=== PATIENT | male | born 1935 | race Caucasian/White ===

== ENCOUNTER → 2018-01-31 10:22 | Outpatient (POV) | payer MEDICARE, OTHER, SELFPAY | PROVIDERS: Family Provider Internal Medicine Adolescent Medicine; PCP Internal Medicine Adolescent Medicine; Visit Provider Nurse Practitioner Acute Care | DX: Z00.00 Encounter for general adult medical examination without abnormal findings (principal) ==

== ENCOUNTER → 2018-05-13 10:31 | Outpatient (CLI) | payer MEDICARE, OTHER, SELFPAY ==
--- NOTE | 2018-05-13 10:38 | XR_ITS ---
XR chest 2V HISTORY: Shortness of air ITS.REASON: SOB ORDERING PHYSICIAN: Bianca Hill PATIENT AGE: 82 years COMPARISON: 10/22/2012 FINDINGS: Mild cardiomegaly without failure. There is an azygos fissure is a normal variant. Right hemidiaphragm is slightly elevated. Increased markings are present in the right perihilar region consistent with atelectatic change or vascular crowding similar to the previous exam. There is minimal atelectasis or fibrosis in the left lung base laterally. No lobar consolidation or collapse is evident. Overall no significant change compared to the previous exam. No acute bony anomalies. IMPRESSION: Cardiomegaly without failure with chronic changes in the lung bases.. No acute finding
== END ==
PROVIDERS: PCP Nurse Practitioner Family; Visit Provider Nurse Practitioner Family
DX: R06.02 Shortness of breath (principal)
CPT/HCPCS: 71046

== ENCOUNTER → 2018-07-25 08:10 | Outpatient (POV) | payer MEDICARE, OTHER, SELFPAY | PROVIDERS: Visit Provider Nurse Practitioner Acute Care | DX: Z00.00 Encounter for general adult medical examination without abnormal findings (principal) ==

== ENCOUNTER → 2018-12-02 12:10 | Outpatient (CLI) | payer MEDICARE, OTHER, SELFPAY ==
--- NOTE | 2018-12-02 12:17 | XR_ITS ---
XR knee LT 3V HISTORY: Knee pain ITS.REASON: BILAT KNEE PAIN ORDERING PHYSICIAN: Jaren Mata MD PATIENT AGE: 82 years COMPARISON: None FINDINGS: There are moderate tricompartmental osteoarthritic changes which is most severe at the medial compartment and patellofemoral joint. Osteophytes are present at the 3 compartments. No fracture or dislocation. No lytic or blastic change. Small suprapatellar effusion and generalized vascular calcification is present. 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 The osteoarthritis is worse on the left side compared to the right side.
--- NOTE | 2018-12-02 12:17 | XR_ITS ---
XR knee RT 3V HISTORY: Right knee pain ITS.REASON: BILAT KNEE PAIN ORDERING PHYSICIAN: Jaren Mata MD PATIENT AGE: 82 years COMPARISON: None FINDINGS: [id number] osteoarthritic changes are present involving all 3 compartments greater at the medial compartment. No fracture or dislocation. No lytic or blastic change. There may be a small suprapatellar effusion. There is generalized vascular calcification. IMPRESSION: [id number] osteoarthritis with possible small knee joint effusion.
== END ==
PROVIDERS: PCP Family Medicine; Visit Provider Family Medicine
DX: M25.562 Pain in left knee (principal); M25.561 Pain in right knee
CPT/HCPCS: 73562

== ENCOUNTER → 2018-12-09 11:27 | Outpatient (CLI) | payer MEDICARE, OTHER, SELFPAY ==
--- NOTE | 2018-12-09 11:38 | CT_ITS ---
CT abdomen pelvis wo con CLINICAL INDICATION: ITS.REASON: HEMATURIA ORDERING PHYSICIAN: KINGS Coy PATIENT AGE: 82 years COMPARISON: 04/25/2014 TECHNIQUE: Axial images obtained with sagittal and coronal reformats. All CT scans at the facility use one or more dose reduction, viz: automated exposure control, ma/kV adjustment per patient size (including targeted exams where dose is matched to indication, i.e. head), or iterative reconstruction technique. PROCEDURE: Oral Contrast: None IV Contrast: None . FINDINGS: There is mild left basilar atelectasis. Chronic changes are present in the lung bases with mild bronchial thickening. There are coronary artery calcifications. The liver has an unremarkable appearance. There is increased density in the gallbladder consistent with cholelithiasis. The spleen and adrenal glands are unremarkable. There is an isodensity along the anterior aspect of the body of the pancreas well-circumscribed measuring 18 x 12 mm. There are bilateral renal calculi. There is an 8 mm somewhat irregular stone in the right renal pelvis. There is minimal prominence of the right renal pelvis which had a similar appearance on the previous exam. There is a 4 mm stone in the lower pole the right kidney. There are parapelvic renal cysts on the left with a 6 mm stone in the lower pole and 4 mm stone in the lower pole anteriorly. No ureteral calculi are evident. There is a 2.5 cm cyst in the lateral aspect of the right kidney and a 2 cm cyst in the lower pole the right kidney. Unremarkable appendix. There is extensive sigmoid diverticulosis but no evidence of diverticulitis. There is a partially calcified density in the lower pelvis slightly toward the left containing fat centrally. This measures 2 cm x 1 cm and may be due to an area of fat necrosis. A fat-containing density with peripheral soft tissue density is noted adjacent to the sigmoid colon anteriorly on image #96 and may also be related to fat sclerosis or epiploic appendagitis. This has shown some increasing calcifications compared with the previous study. In the midabdomen anterolaterally an additional similar density is noted at 2 cm. A similar type of density is present in the left upper quadrant at 2.8 x 1.2 cm. A similar density is present in the mid pelvic region with coarse calcification. There are degenerative changes in the lumbar spine. IMPRESSION: 1. Bilateral nephrolithiasis. Largest stones in the right renal pelvis at 8 mm. 2. Bilateral renal cysts. 3. Multiple peritoneal fat-containing nodular opacities some of which have calcification consistent with areas of fat necrosis or possible epiploic appendagitis . 4. There is an 18 x 12 mm isodense lesion of the body of the pancreas. This is indeterminate. Further evaluation suggested with MRI without and with contrast and MRCP. The patient is not MRI compatible then CT of the pancreas with 3 phase) imaging is provided other evaluation.
== END ==
PROVIDERS: PCP Family Medicine; Visit Provider Physician Assistant
DX: R31.9 Hematuria, unspecified (principal)
CPT/HCPCS: 74176

== ENCOUNTER → 2018-12-12 11:19 | Outpatient (CLI) | payer MEDICARE, OTHER, SELFPAY ==
[2018-12-12 14:11] LABS: Blood Urea Nitrogen 9 mg/dL (7-18); Creatinine,Serum 0.93 mg/dL (0.70-1.30); Estimated Glomerular Filt Rate 78 ml/min (>60); GFR (African American) 94 ML/MIN (>60)
== END ==
PROVIDERS: PCP Physician Assistant; Visit Provider Physician Assistant
DX: K86.9 Disease of pancreas, unspecified (principal)
CPT/HCPCS: 36415; 82565; 84520

== ENCOUNTER → 2018-12-15 09:18 | Outpatient (CLI) | payer MEDICARE, OTHER, SELFPAY | PROVIDERS: PCP Family Medicine; Visit Provider Physician Assistant | DX: K86.9 Disease of pancreas, unspecified (principal) ==

== ENCOUNTER → 2018-12-19 10:18 | Outpatient (CLI) | payer MEDICARE, OTHER, SELFPAY ==
--- NOTE | 2018-12-19 10:20 | MR_ITS ---
MR abdomen wo/w con, MR 3-d myelogram/MRCP INDICATION: Follow-up pancreatic mass ITS.REASON: PANCREATIC MASS ORDERING PHYSICIAN: KINGS Coy PATIENT AGE: 83 years COMPARISON: 12/09/2018 TECHNIQUE: Multiplanar multiecho sequences are performed without and with contrast with dynamic imaging post enhanced. MRCP also performed.. FINDINGS: There is a 13 x 11 well-circumscribed lesion involving the mid aspect of the body of the pancreas anteriorly. This is hypointense on the T1-weighted images and becomes hyperintense on T2. No significant contrast enhancement. No portal or periportal adenopathy.. MRCP images suggest that this does appear to communicate with the pancreatic. MRCP shows nondilated common bile duct with a normal pancreatic duct. Cystic lesion noted in the junction of the body and tail the pancreas may communicate with the duct. There is a moderate degree of motion artifact obscuring fine detail on the MRCP. Gallstones are suspected. There are bilateral renal cysts. IMPRESSION: 1. 13 x 11 mm cystic lesion involves the junction of the body and tail the pancreas as seen on the CT scan. This may represent a side branch IPMN . Pseudocyst Would be included in the differential diagnosis. Mucinous pancreatic neoplasm felt to be less likely but not completely excluded. Suggest 6 month follow-up which can be performed with CT without and with contrast. 2. Possible cholelithiasis. 3. Bilateral renal cysts
--- NOTE | 2018-12-19 13:27 | HMH.ITSHM ---
Current Home Medications as stated by this patient Gaurav Webb or business representative. []LISINOPRIL CARVEDILOL ASPIRIN
== END ==
PROVIDERS: PCP Physician Assistant; Visit Provider Physician Assistant
DX: K86.9 Disease of pancreas, unspecified (principal)
CPT/HCPCS: 74183; 76376; A9576

== ENCOUNTER → 2019-01-16 14:01 | Outpatient (POV) | payer MEDICARE, OTHER, SELFPAY | PROVIDERS: Visit Provider Nurse Practitioner Family | DX: Z00.00 Encounter for general adult medical examination without abnormal findings (principal) ==

== ENCOUNTER → 2019-01-17 09:31 | Outpatient (CLI) | payer MEDICARE, OTHER, SELFPAY ==
[2019-01-17 15:17] LABS: Basophils % 0.2 % (0.1-2.0); Eosinophils # 0.1 K/mm3 (0.0-0.4); Eosinophils % 2.5 % (0.1-12.0); Hematocrit 38.1 % (42.0-52.0); Hemoglobin 10.9 g/dL (14.1-18.0); Lymphocytes # 0.8 K/mm3 (0.7-4.5); Lymphocytes % 20.2 % (10-50); Mean Corpuscular HGB Conc 28.6 g/dL (31.8-35.4); Mean Corpuscular Hemoglobin 24.3 pg (27.0-31.2); Mean Corpuscular Volume 85.2 fl (80-94); Mean Platelet Volume 8.8 fl (7.4-10.4); Monocytes # 0.4 K/mm3 (0.1-1.0); Neutrophils # 2.7 K/mm3 (1.8-7.8); Neutrophils % 68.1 % (37.0-80.0); Platelet Count 173 K/mm3 (142-424); Red Blood Count 4.47 M/mm3 (4.60-6.20); Red Cell Distribution Width 14.2 % (11.5-17.5)
[2019-01-17 15:56] LABS: Alanine Aminotransferase 31 U/L (12-78); Albumin Level 3.5 gm/dL (3.4-5.0); Albumin/Globulin Ratio 1.1 (1.1-1.8); Alkaline Phosphatase 71 U/L (46-116); Amylase 38 U/L (25-115); Aspartate Amino Transferase 19 U/L (15-37); Bilirubin,Total 0.6 mg/dL (0.2-1.0); Blood Urea Nitrogen 8 mg/dL (7-18); Calcium 9.1 mg/dL (8.5-10.1); Carbon Dioxide 26 mmol/L (21.0-32.0); Chloride 107 mmol/L (98-107); Creatinine,Serum 0.91 mg/dL (0.70-1.30); Estimated Glomerular Filt Rate 80 ml/min (>60); GFR (African American) 97 ML/MIN (>60); Globulin 3.1 gm/dl (1.3-3.2); Glucose 156 mg/dL (74-106); Lipase 106 u/L (73-393); Sodium 142 mmol/L (136-145); Total Protein,Serum 6.6 gm/dL (6.4-8.2)
[2019-01-20 17:48] LABS: CA 19-9 15 U/mL (0-35)
== END ==
PROVIDERS: PCP Family Medicine; Visit Provider Nurse Practitioner Family
DX: R10.10 Upper abdominal pain, unspecified (principal); R19.09 Other intra-abdominal and pelvic swelling, mass and lump; K80.20 Calculus of gallbladder without cholecystitis without obstruction
CPT/HCPCS: 36415; 80053; 82150; 83690; 85025; 86316

== ENCOUNTER → 2019-01-23 09:30 | Outpatient (CLI) | payer MEDICARE, OTHER, SELFPAY ==
--- NOTE | 2019-01-23 09:37 | US_ITS ---
US abdomen limited History: Ordering Physician:Gem Abdi APRN Patient Age: 83 years Comparison:None Findings: Pancreas:There is a cystic lesion involving the pancreatic body measuring 1.7 cm. This is poorly demonstrated due to overlying bowel gas. No obvious pancreatic ductal dilatation. Liver:Unremarkable. No obvious mass or abnormal fluid collection. No ductal dilatation Right Kidney:There is a 3 cm right renal cyst. Echogenic foci present in the gallbladder consistent with kidney stones. Gallbladder:The gallbladder is contracted. There are echogenic foci within the contracted gallbladder with some posterior acoustical shadowing consistent with gallstones. No pericholecystic fluid or biliary dilatation or gallbladder wall thickening is evident. The common bile duct measures 2 mm. Impression: 1. Contracted gallbladder with cholelithiasis. 2. 1.7 cm cystic lesion of the body of the pancreas 3. Right nephrolithiasis
--- NOTE | 2019-01-23 09:41 | NM_ITS ---
NM hepatobiliary w pharm HISTORY: Abdominal pain, cholelithiasis, contracted gallbladder noted on ultrasound ITS.REASON: ABD PAIN,BLOATING,MASS OF PANCREAS,CHOLELITHIASIS ORDERING PHYSICIAN: Gem Abdi APRN PATIENT AGE: 83 years COMPARISON: None DOSE: 8.27 MCI TC Choletec injected into LT Ant CCK was not utilized due to the presence of gallstones. The patient was given a fatty meal consisting of ensure. No pain reported with fatty meal. FINDINGS: Homogeneous activity is present within the hepatic parenchyma. Activity is present in the gallbladder by 30 minutes. Activity is present in the small bowel by 20 minutes. The gallbladder ejection fraction is calculated to be 5% which is low The patient did not report pain or other symptoms during CCK infusion. IMPRESSION: 1. No evidence of common or cystic duct obstruction. 2. Low gallbladder ejection fraction of 5%
--- NOTE | 2019-01-23 11:27 | HMH.ITSHM ---
Current Home Medications as stated by this patient Gaurav Webb or field sales representative. [] lisinopril asa carvedilol
== END ==
PROVIDERS: PCP Family Medicine; Visit Provider Nurse Practitioner Family
DX: R10.10 Upper abdominal pain, unspecified (principal); R14.0 Abdominal distension (gaseous); R19.09 Other intra-abdominal and pelvic swelling, mass and lump; K80.20 Calculus of gallbladder without cholecystitis without obstruction
CPT/HCPCS: 76705; 78227; A9537

== ENCOUNTER → 2019-02-14 09:37 | Outpatient (CLI) | payer MEDICARE, OTHER, SELFPAY ==
--- NOTE | 2019-02-14 09:43 | XR_ITS ---
XR KUB HISTORY: ITS.REASON: kidney stone ORDERING PHYSICIAN: Julio Sarkar MD PATIENT AGE: 83 years COMPARISON: None FINDINGS: Multiple bilateral renal calculi are present. A cluster stones measuring 12 mm is present in the upper pole on the left and 12 mm in the lower pole on the left. Small calculi present on the right kidney measuring 2 to 3 mm. There are multiple pelvic calcifications present which are possibly due to phleboliths IMPRESSION: Bilateral nephrolithiasis
== END ==
PROVIDERS: PCP Family Medicine; Visit Provider Urology
DX: N20.0 Calculus of kidney (principal)
CPT/HCPCS: 74018

== ENCOUNTER → 2019-05-02 10:14 | Outpatient (CLI) | payer MEDICARE, OTHER, SELFPAY ==
--- NOTE | 2019-05-02 10:36 | ECG_ITS ---
APPROVED REPORT Exam: Resting ECG HR:64 bpm ECG Measurements Heart Rate 64 AXES HI 148 P 23 QRSd 112 QRS -24 QT 386 T 92 QTc 398 <Conclusion> Normal sinus rhythm Old inf/ant changes T wave abnormality - unchanged from prior Abnormal ECG Electronically signed by : Richard Mares, 05/02/2019 11:06:26
[2019-05-02 10:41] LABS: Basophils % 0.3 % (0.1-2.0); Eosinophils # 0.1 K/mm3 (0.0-0.4); Eosinophils % 2.4 % (0.1-12.0); Hemoglobin 13.8 g/dL (14.1-18.0); Lymphocytes # 0.7 K/mm3 (0.7-4.5); Lymphocytes % 15.6 % (10-50); Mean Corpuscular HGB Conc 30.6 g/dL (31.8-35.4); Mean Corpuscular Hemoglobin 29.2 pg (27.0-31.2); Mean Corpuscular Volume 95.4 fl (80-94); Mean Platelet Volume 9.6 fl (7.4-10.4); Monocytes # 0.3 K/mm3 (0.1-1.0); Monocytes % 6.2 % (1.7-9.3); Neutrophils # 3.5 K/mm3 (1.8-7.8); Neutrophils % 75.5 % (37.0-80.0); Platelet Count 150 K/mm3 (142-424); Red Blood Count 4.72 M/mm3 (4.60-6.20); Red Cell Distribution Width 17.6 % (11.5-17.5); White Blood Count 4.7 K/mm3 (4.8-10.8)
[2019-05-02 11:46] LABS: Alanine Aminotransferase 32 U/L (12-78); Albumin Level 3.8 gm/dL (3.4-5.0); Albumin/Globulin Ratio 1.2 (1.1-1.8); Alkaline Phosphatase 72 U/L (46-116); Anion Gap 12.7 mEq/L (5-15); Aspartate Amino Transferase 20 U/L (15-37); Bilirubin,Total 0.5 mg/dL (0.2-1.0); Blood Urea Nitrogen 13 mg/dL (7-18); Calcium 9.5 mg/dL (8.5-10.1); Carbon Dioxide 28 mmol/L (21.0-32.0); Chloride 106 mmol/L (98-107); Estimated Glomerular Filt Rate 72 ml/min (>60); GFR (African American) 87 ML/MIN (>60); Globulin 3.1 gm/dl (1.3-3.2); Glucose 114 mg/dL (74-106); Potassium 4.7 mmoL/L (3.5-5.1); Sodium 142 mmol/L (136-145); Total Protein,Serum 6.9 gm/dL (6.4-8.2)
== END ==
PROVIDERS: Visit Provider Surgery
DX: K81.1 Chronic cholecystitis (principal)
CPT/HCPCS: 36415; 80053; 85025; 93005

== ENCOUNTER → 2019-09-01 12:32 | Outpatient (CLI) | payer MEDICARE, OTHER, SELFPAY ==
--- NOTE | 2019-09-01 12:37 | US_ITS ---
APPROVED REPORT Exam Type: Lower Extremity Segmental Pressures Stretching Machine Operator: MOISES SCHMID RUST Indications Claudication: Rest Pain: History of Smoking CAD Pressures/Indices Right Indices Left Indices Brachial 147.00 mmHg Brachial 156.00 mmHg Low Thigh 179.00 mmHg 1.15 Low Thigh 177.00 mmHg 1.13 Calf 160.00 mmHg 1.03 Calf 115.00 mmHg 0.74 Ankle(PT) 145.00 mmHg 0.93 Ankle(PT) 163.00 mmHg 1.04 Ankle(DP) 107.00 mmHg 0.69 Ankle(DP) 135.00 mmHg 0.87 Digit 82.00 mmHg 0.53 Digit 65.00 mmHg 0.42 Post Exercise Pressures/Indices Right Left 0.90 MURTAZA 1.00 Findings R MURTAZA .9 L MURTAZA 1.0 R TBI .5 L TBI .4 DIMINSHED PULSES NORMAL WAVEFORMS Conclusion R MURTAZA .9 L MURTAZA 1.0 R TBI .5 L TBI .4 DIMINSHED PULSES NORMAL WAVEFORMS Electronically signed by : Satnam Green, 09/01/2019 15:36:37
== END ==
PROVIDERS: PCP Family Medicine; Visit Provider Family Medicine
DX: I70.213 Atherosclerosis of native arteries of extremities with intermittent claudication, bilateral legs (principal)
CPT/HCPCS: 93923

== ENCOUNTER → 2019-09-18 09:33 | Outpatient (CLI) | payer MEDICARE, OTHER, SELFPAY ==
--- NOTE | 2019-09-18 09:37 | XR_ITS ---
PROCEDURE: XR KNEE LT 4V CLINICAL INDICATION: Left knee pain COMPARISON: No exams were available for comparison FINDINGS: No fracture or dislocation. No lytic or blastic change. There is normal mineralization. There are moderate to severe osteoarthritic changes of the medial compartment with mild to moderate osteoarthritic change of the patellofemoral joint and mild osteoarthritis of the lateral compartment. There is increased density in the suprapatellar region suggesting small effusion. Vascular calcifications are present. Other findings:None. IMPRESSION: Osteoarthritis with small knee joint effusion Dictated by: Dickson Chaney MD 09/18/2019 11:21 Electronically signed by Dickson Chaney MD in [place] 09/18/2019 11:21
== END ==
PROVIDERS: PCP Family Medicine; Visit Provider Orthopaedic Surgery
DX: M25.562 Pain in left knee (principal)
CPT/HCPCS: 73564

== ENCOUNTER → 2019-12-25 12:29 | Outpatient (CLI) | payer MEDICARE, OTHER, SELFPAY ==
--- NOTE | 2019-12-25 12:52 | CA_ITS ---
APPROVED REPORT EXAM: Comprehensive 2D, Doppler, and color-flow Echocardiogram Analysis Tester: Elizabeth Ibarra, RT(R) Ht: 5 ft 8 in Wt: 225lbs BSA: 2.15 BP: 120/84 mmHg Indications: COPD, ex smoker, HTN, SOB, elevated BNP, ARPITA, GERD, hx of throat cancer, hx TN Echo Enhancing Agent Indication: Endocardial border delineation Agent(s) / Amount(s) Used: Definity 2 cc 2D Dimensions LVOT 2.44 cm (M/F) 1.5-2.5 M-Mode Dimensions RVDd 1.67 cm (0.9-2.6) LVDd 4.52 cm (3.5-5.7) LVDs 4.22 cm (3.5-5.7) IVSd 0.84 cm (0.6-1.1) PWd 0.80 cm (0.6-1.1) EF (Teich) 14.90% FS 6.60% EDV (Teich) 93.40 mL ESV (Teich) 79.50 mL LV Diastology E/A Ratio 0.79 Mitral Valve MV A Velocity 85.00 (40-130 cm/s) Left Ventricle Left atrium is mildly enlarged, left ventricle is mildly dilated, severe reduced left ventricular systolic function, visually estimated ejection fraction approximately 20 to 25%, there is marked hypo-to akinesis involving mid to distal septum, anterior, anterior apical ,apical and inferior apical wall. There is non-mobile mural thrombus seen at the apex, delineated by Definity contrast. Diastolic parameters consistent with grade 1 diastolic dysfunction without tissue Doppler evidence of raise left atrial pressure. Right Ventricle Right atrium and right ventricular normal size and contractility. Aortic Valve Aortic valve is thickened and calcified without aortic stenosis aortic insufficiency. Mitral Valve Mitral valve leaflets are minimally thickened, there is mild mitral regurgitation. Tricuspid Valve Tricuspid valve leaflets are minimally thickened, there is mild tricuspid regurgitation. Pulmonic Valve Pulmonic valve is poorly visualized. Great Vessels Aortic root is normal size. Pericardium No significant pericardial effusion noted. Conclusion 1. Mildly enlarged left atrium, dilated left ventricle, severe reduced left ventricular systolic function, visually estimated ejection fraction 20-25% with multiple segmental wall motion abnormalities as described above, left ventricular apical mural thrombus seen as described above. Definity contrast was utilized to delineate the endocardial surfaces, grade 1 diastolic dysfunction seen without tissue Doppler evidence of raise left atrial pressure. 2. Mild mitral and tricuspid regurgitation. 3. No significant pericardial effusion noted. Electronically signed by : Tres Nuñez, 12/25/2019 21:34:21
== END ==
PROVIDERS: PCP Family Medicine; Visit Provider Family Medicine
DX: R06.02 Shortness of breath (principal); R79.89 Other specified abnormal findings of blood chemistry
CPT/HCPCS: 93306; Q9957

== ENCOUNTER 2020-03-30 06:12 | Observation (INO) | payer MEDICARE, OTHER, SELFPAY ==
[2020-03-30] VITALS (12 sets, daily range): BP systolic 137–187; BP diastolic 68–110; PULSE 75–106; RESP 16–26; TEMP 36.6–37; O2SAT 90–97; BMI 33.4; BMI 33.1
--- NOTE | 2020-03-30 06:30 | CT_ITS ---
PROCEDURE: CT ABDOMEN PELVIS W CON CLINICAL INDICATION: blood Bleeding COMPARISON: CT ABDPELW/WO CT ABD PELVIS W/WO CONTRAST from 04/25/[address] ABDOMEN PELVIS WO CON from 09/14/2019 TECHNIQUE: IV Contrast: 100ml Optiray 350 performed in conjunction with the chest CT Oral Contrast None Axial images obtained with sagittal and coronal reformats. All CT scans at the facility use one or more dose reduction, viz: automated exposure control, ma/kV adjustment per patient size (including targeted exams where dose is matched to indication, i.e. head), or iterative reconstruction technique. FINDINGS: Prior cholecystectomy with pneumobilia. Mild nonspecific thickening of the distal esophagus. 2.8 cm right renal cyst and 2.5 cm right renal cyst. 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 There is a 14 mm hypodense lesion along the anterior aspect of the body of the pancreas. An additional 5 mm hypodensity is present in the central aspect of the body of the pancreas in the region of the pancreatic duct. These findings are not significantly changed. Adrenal glands are slightly prominent but unchanged. No evidence of appendicitis. There is colonic diverticulosis. Anterior to the junction of the descending and sigmoid colon in the left lower quadrant there is an area of fat stranding not significantly changed and may represent sequela from a prior episode of epiploic appendagitis. An additional area is noted in the left lower quadrant also anterior medial to the sigmoid colon and could represent an area of prior epiploic appendagitis with circular area of stranding of the fat with some calcification. No acute bony findings. Unchanged. Prostate is enlarged at 5 cm. IMPRESSION: 1. No acute abdominal or pelvic findings. 2. There are stable hypodense pancreatic lesions which have been stable dating back to 04/25/2014 3. Colonic diverticulosis without diverticulitis with areas felt to represent sequela from epiploic appendagitis 4. Other nonacute findings as described above. Dictated by: Dickson Chaney MD 03/30/2020 10:02 Dickson Chaney MD in [place] 03/30/2020 10:02
--- NOTE | 2020-03-30 06:35 | CT_ITS ---
PROCEDURE: CT CHEST W CON CLINCAL INDICATION: coughing blood Hemoptysis, history of throat cancer COMPARISON: CT CT ABDOMEN PELVIS W CON from 03/30/2020 TECHNIQUE: IV Contrast: 75ml Optiray 350 Axial images obtained with sagittal and coronal reformats. All CT scans at the facility use one or more dose reduction, viz: automated exposure control, ma/kV adjustment per patient size (including targeted exams where dose is matched to indication, i.e. head), or iterative reconstruction technique. FINDINGS: HEART AND MEDIASTINAL STRUCTURES: There is a mildly prominent right paratracheal lymph node measuring 1.5 by 1.2 cm with other smaller mediastinal nodes apparent. Coronary artery calcifications and/or stents noted. There is mild cardiomegaly LUNGS AND PLEURAL SPACES: There is an azygos fissure is a normal variant. There is consolidation in the right upper lobe consistent with pneumonia. There are atelectatic changes in the lung bases slightly greater on the left. No central obstructing lesions are evident. No effusions. BONY STRUCTURES: No acute bony abnormalities apparent. UPPER ABDOMEN: Unremarkable. ADDITIONAL FINDINGS: No other significant abnormalities. IMPRESSION: Right upper lobe pneumonia with a mildly prominent paratracheal lymph node Dictated by: Dickson Chaney MD 03/30/2020 09:50 Dickson Chaney MD in [place] 03/30/2020 09:50
--- NOTE | 2020-03-30 06:37 | CT_ITS ---
PROCEDURE: CT SOFT TISSUE NECK W CON CLINICAL HISTORY: coughing blood History of throat cancer, coughing up blood COMPARISON: No exams were available for comparison TECHNIQUE: Oral Contrast: None IV Contrast: 100 mL Optiray 350 Axial images obtained with sagittal and coronal reformats. All CT scans at the facility use one or more dose reduction, viz: automated exposure control, ma/kV adjustment per patient size (including targeted exams where dose is matched to indication, i.e. head), or iterative reconstruction technique. FINDINGS: Lobular mucosal thickening involves the maxillary sinuses on both sides right more extensive than left consistent with retention cysts. Artifact is present from the patient's dental work. The nasopharynx, epiglottis, oropharynx hypopharynx and larynx has an unremarkable appearance. There is some asymmetry in the vocal folds left slightly more prominent than the right. Direct visualization may be of further value. No adenopathy or abnormal fluid collection is evident. There is asymmetric appearance of the thyroid gland with nonvisualization of the left lobe. Has there been prior left-sided surgery? IMPRESSION: Mild asymmetry in the vocal folds with minimal nodularity on the left. Consider direct visualization for further evaluation. Otherwise negative Dictated by: Dickson Chaney MD 03/30/2020 09:46 Dickson Chaney MD in [place] 03/30/2020 09:46
[2020-03-30 06:45] LABS: Basophils % 0.2 % (0.1-2.0); Eosinophils # 0.2 K/mm3 (0.0-0.4); Eosinophils % 1.7 % (0.1-12.0); Hematocrit 43.3 % (42.0-52.0); Hemoglobin 14.1 g/dL (14.1-18.0); Lymphocytes # 0.7 K/mm3 (0.7-4.5); Lymphocytes % 7.4 % (10-50); Mean Corpuscular HGB Conc 32.5 g/dL (31.8-35.4); Mean Corpuscular Hemoglobin 29.4 pg (27.0-31.2); Mean Corpuscular Volume 90.7 fl (80-94); Mean Platelet Volume 8.7 fl (7.4-10.4); Monocytes # 0.5 K/mm3 (0.1-1.0); Monocytes % 4.6 % (1.7-9.3); Neutrophils # 8.6 K/mm3 (1.8-7.8); Neutrophils % 86.1 % (37.0-80.0); Platelet Count 150 K/mm3 (142-424); Red Blood Count 4.77 M/mm3 (4.60-6.20); Red Cell Distribution Width 15.7 % (11.5-17.5); White Blood Count 9.9 K/mm3 (4.8-10.8)
[2020-03-30 06:47] LABS: MANUAL DIFFERENTIAL MANUAL DIFFERENTIAL (MANUAL DIFF)
[2020-03-30 06:50] LABS: Chloride 106 mmol/L (98-107); Potassium 4.2 mmoL/L (3.5-5.1); Sodium 143 mmol/L (136-145)
[2020-03-30 06:53] LABS: Alanine Aminotransferase 24 U/L (12-78); Albumin Level 4.3 g/dl (3.5-5.0); Albumin/Globulin Ratio 1.4 (1.1-1.8); Alkaline Phosphatase 75 U/L (38-126); Anion Gap 14.2 mEq/L (5-15); Aspartate Amino Transferase 28 U/L (17-59); Bilirubin,Total 0.6 mg/dl (0.2-1.3); Blood Urea Nitrogen 12 mg/dl (9-20); Carbon Dioxide 27 mmol/L (22.0-30.0); Creatinine Clearance Estimated 79 mL/min (50-200); Estimated Glomerular Filt Rate 92 ml/min (>60); GFR (African American) 112 ML/MIN (>60); Globulin 3.1 g/dL (1.3-3.2); Glucose 139 mg/dl (74-100); Total Protein,Serum 7.4 g/dl (6.3-8.2)
[2020-03-30 06:54] LABS: Calcium 9.6 mg/dl (8.4-10.2)
[2020-03-30 06:59] LABS: C-Reactive Protein 0.7 mg/L (0-4)
[2020-03-30 07:01] LABS: Eosinophils % 4 % (0-3); Lymphocytes % 10 % (10-50); Monocytes % 3 % (2-9); Neutrophils % 83 % (42-76); Platelet Estimate Normal; RBC Morphology Normal; Total Cells Counted 100
[2020-03-30 07:08] LABS: Erythrocyte Sedimentation Rate 8 mm/hr (0-20)
--- NOTE | 2020-03-30 08:10 | HMH.EDGENADL ---
ED Disposition Clinical Impression: Hemoptysis Pneumonia, aspiration Qualifiers: Aspiration pneumonia type: unspecified Laterality: right Lung location: upper lobe of lung Qualified Code(s): J69.0 - Pneumonitis due to inhalation of food and vomit Disposition: Admitted As Inpatient Condition on Discharge: Fair Instructions: DI for Gastrointestinal Bleeding, Pneumonia-Adult Referrals: Jaren Mata MD [Primary Care Provider] - Time of Disposition: 10:58 - Critical Care Critical Care Time: No Attestation: On 03/30/20, the high probability of a clinically significant, sudden or life threatening deterioration of the following system(s) required my full and direct attention, intervention and personal management. The time I documented below is in addition to time spent performing reported procedures but includes the following listed in this critical care notation. Medical Decision Making - Medical Records Medical records reviewed: Yes: I reviewed the patient's medical records. - Perfecto Inquiry Pt receiving controlled substance: No Vital Signs: 03/30/20 06:23 03/30/20 07:02 03/30/20 08:02 Temperature 98.6 F Temperature Source Oral Pulse Rate [Right] 106 H 95 H 100 H Respiratory Rate 18 16 19 Blood Pressure [Right Arm] 185/107 H 167/86 H 187/110 H Blood Pressure Mean [Right Arm] 133 113 135 Blood Pressure Source [Right Arm] Automatic Cuff Automatic Cuff Blood Pressure Position [Right Arm] Sitting Supine Supine 02 Sat by Pulse Oximetry 95 97 92 L Oxygen Delivery Method Room Air Room Air Room Air 03/30/20 08:53 03/30/20 09:48 Temperature Temperature Source Pulse Rate [Right] 91 H 94 H Respiratory Rate 25 H 18 Blood Pressure [Right Arm] 162/93 H 143/76 H Blood Pressure Mean [Right Arm] 116 98 Blood Pressure Source [Right Arm] Automatic Cuff Automatic Cuff Blood Pressure Position [Right Arm] Supine Supine 02 Sat by Pulse Oximetry 95 94 L Oxygen Delivery Method Room Air - Lab Data Lab Results 03/30/20 06:38: WBC 9.9, RBC 4.77, Hgb 14.1, Hct 43.3, MCV 90.7, MCH 29.4, MCHC 32.5, RDW 15.7, Plt Count 150, MPV 8.7, Neut % (Auto) 86.1 H, Lymph % (Auto) 7.4 L, [place] % (Auto) 4.6, Eos % (Auto) 1.7, Baso % (Auto) 0.2, Neut # (Auto) 8.6 H, Lymph # (Auto) 0.7, [place] # (Auto) 0.5, Eos # (Auto) 0.2, Baso # (Auto) 0.0, Total Counted 100, Neutrophils % (Manual) 83 H, Lymphocytes % (Manual) 10, Monocytes % (Manual) 3, Eosinophils % (Manual) 4 H, Platelet Estimate Normal, RBC Morphology Normal, ESR 8 03/30/20 06:38: Sodium 143, Potassium 4.2, Chloride 106, Carbon Dioxide 27, Anion Gap 14.2, BUN 12, Creatinine 0.80, Estimated Creat Clear 79, Estimated GFR 92, Est GFR ( Amer) 112, Glucose 139 H, Calcium 9.6, Total Bilirubin 0.6, AST 28, ALT 24, Alkaline Phosphatase 75, C-Reactive Protein 0.7, Total Protein 7.4, Albumin 4.3, Globulin 3.1, Albumin/Globulin Ratio 1.4 03/30/20 08:50: Blood Type O Positive, Antibody Screen Negative 03/30/20 08:50: SARS-CoV-2 IgG Ab (Rapid) Negative, SARS-CoV-2 IgM Ab (Rapid) Negative Result diagrams: 03/30/20 06:38 03/30/20 06:38 Orders (Tests/Meds): ED MEDICATIONS Generic Name Dose Route Start Last Admin Trade Name Freq PRN Reason Stop Dose Admin Ceftriaxone Sodium 1 gm/ 50 mls @ 100 mls/hr 03/30/20 10:15 03/30/20 10:14 Sodium Chloride IV 04/13/20 10:14 100 mls/hr Q24H VAN Administration Protocol Clindamycin Phosphate 600 mg/ 104 mls @ 100 mls/hr 03/30/20 11:00 Sodium Chloride IV 04/13/20 10:59 Q8H VAN Protocol Sodium Chloride 10 ml 03/30/20 06:41 Sodium Chloride 0.9% 10ml Vial IV 04/29/20 06:40 NEEDED PRN dilute protonix Discontinued Medications Generic Name Dose Route Start Last Admin Trade Name Freq PRN Reason Stop Dose Admin Sodium Chloride 1,000 mls @ 999 mls/hr 03/30/20 06:30 03/30/20 06:39 Sod Chlor 0.9% 1000ml Bag IV 03/30/20 07:30 999 mls/hr .Q1H1M VAN Administration Pantoprazole Sodium 80 mg
--- NOTE | 2020-03-30 09:15 | PC.NURSE ---
Called [facility] for update on CT readings stated they had not been sent out to [facility] yet because they were trying to get ahold of dr liriano, stated they would call us back with an update
--- NOTE | 2020-03-30 09:33 | PC.NURSE ---
[facility] stated they have not been able to get ahold of dr liriano and are sending it to [facility].
--- NOTE | 2020-03-30 09:35 | PC.NURSE ---
Dr Michelle updated pt and family on POC
[2020-03-30 10:02] LABS: Coronavirus 19 IgG Antibody Negative (Negative); Coronavirus 19 IgM Antibody Negative (Negative)
--- NOTE | 2020-03-30 11:19 | XR_ITS ---
PROCEDURE: XR CHEST PORTABLE CLINICAL HISTORY: pneumonia COMPARISON: CR CXR CHEST(2 VIEWS-NOT PORTABLE) from 10/22/2012 CR CXR2V XR chest 2V from 05/13/[address] CHEST W CON from 03/30/2020 FINDINGS: Borderline cardiomegaly without failure Right upper lobe pneumonia involving the anterior segment of the right upper lobe. There is an azygos fissure as a normal variant No acute bony abnormalities. IMPRESSION: Right upper lobe pneumonia Dictated by: Dickson Chaney MD 03/30/2020 13:08 Dickson Chaney MD in [place] 03/30/2020 13:08
--- NOTE | 2020-03-30 11:36 | HMH.HP ---
*Admission Date: 03/30/20 <BreeQuyen - 03/30/20 11:46> *Chief complaint: cough, hemoptysis <Quyen Giron 03/30/20 11:46> *History of present illness: Mr. Webb is an 84-year-old male presenting to the emergency department with chief complaint of coughing blood. Symptoms started yesterday evening and continued this morning. He had generalized nausea when he went to bed last night. Woke up coughing up thick mucus that was bright red and dark red in color. Was not streaks of blood, was luis enrique clot. He has a chronic cough. Coughs throughout the day and night. Nothing like this has ever happened before. 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 Takes Prilosec, aspirin and antihypertensives, no blood thinners. No vomiting. No current nausea. No recent illness, fevers, chills. No headache, vision changes, weakness. Voice is raspy, but sounds normal to his . No dark tarry stools. No history of alcohol use or varices. (the above as per the ER) The patient does have a history of peptic ulcer disease and was given protonix in the ER. He H&H was normal. He had a CT scan of the chest showing a right upper lobe infiltrate. There was some concern by the ER physician for aspiration. He was started on 1 g of IV Rocephin and 600 mg of IV clindamycin and was admitted for further evaluation and treatment. <Quyen Giron - 03/30/20 11:46> [facility] History Medical History: Reports:: Cancer (throat), Chronic Obstructive Pulmonary Disease (COPD), Coronary Artery Disease, Gastroesophageal Reflux Disease(GERD), Hypertension, Lung Disease, Kidney Stones, Myocardial Infarction, Peripheral Vascular Disease Denies:: Diabetes Mellitus Type 1, Diabetes Mellitus Type 2, Internal Pacemaker, MRSA, Seizures <Quyen Giron 03/30/20 11:46> *Have you ever received a pneumonia vaccine?: Yes <Quyen Giron 03/30/20 11:46> *Have you received a flu vaccine this season?: Yes <Quyen Giron 03/30/20 11:46> Other Medical History: Reports: Other (Diverticulosis, PVD). Denies: Blood Transfusion Reaction <Quyen Giron 03/30/20 11:46> Laterality Cases: Bilateral: Tonsillectomy <Quyen Giron 03/30/20 11:46> Other Surgeries: Yes: Cancer Surgery, Cardiac Catheterization, Cholecystectomy, Colonoscopy, Coronary Stent (1), EGD, Other. No: Pacemaker <Quyen Giron 03/30/20 11:46> Amputation: No <Quyen Giron 03/30/20 11:46> Fractures: No <Quyen Giron 03/30/20 11:46> - *Social History Smoking Status: Former smoker <Quyen Giron 03/30/20 11:46> # Packs/Day (cigarettes): 1 <Quyen Giron 03/30/20 11:46> #Yrs smoked (if former smoker): 35 <Quyen Giron 03/30/20 11:46> Alcohol Intake: never <Quyen Giron 03/30/20 11:46> Alcohol Intake Frequency:: a few times a month <Quyen Giron 03/30/20 11:46> Substance Use Type: denies use <Quyen Giron 03/30/20 11:46> *Occupational Status:: retired <Quyen Giron 03/30/20 11:46> Housing: house <Quyen Giron 03/30/20 11:46> Household Members: spouse <Quyen Giron 03/30/20 11:46> *Travel in the last 8 weeks: None <Quyen Giron 03/30/20 11:46> Family Hx:: Asthma, Cancer, Coronary Artery Disease, Diabetes, Hypertension, Stroke <Quyen Giron 03/30/20 11:46> Review of Systems - Constitutional Denies body ache(s), Denies chills <Michelle Solis - 03/30/20 14:05> - Eyes Denies change in vision <Michelle Solis - 03/30/20 14:05> - ENT Denies difficulty swallowing, Denies pain with swallowing <Michelle Solis 03/30/20 14:05> Comments: He did have some GI distress last night and brought up some food and recognizes that he possibly aspirated. <Michelle Solis - 03/30/20 14:05> - *Cardiovascular Denies chest pain <Michelle Solis - 03/30/20 14:05> - *Respiratory Reports chest congestion, Reports cough, Denies shortness of breath <Michelle Solis - 03/30/20 14:05> - *Gastrointestinal Reports heartburn, Re
--- NOTE | 2020-03-30 16:09 | PC.NURSE ---
PT AO*4 T/O SHIFT, HAS TOLERATED RA WELL WITH O2 SATS IN THE MID 90'S, PT VOICE IS VERY HOARSE AND WHEEZES CAN BE AUSCULTATED ON INSPIRATION AND EXPIRATION, #20 IN THE LAC WITH NS @100, PT NOT ON TELE, NO EDEMA NOT IN BLE, PT AMBULATES PER SELF TO RR, TOLERATING REGULAR DIET WELL. NO NEEDS AT THIS TIME, WILL CONTINUE TO MONITOR
[2020-03-31] VITALS: BP 153/81; PULSE 73; RESP 17; TEMP 36.7; O2SAT 93
[2020-03-31 03:24] VITALS: BP 136/78; PULSE 71; RESP 17; TEMP 36.6; O2SAT 94
[2020-03-31 05:03] VITALS: BMI 32.9
--- NOTE | 2020-03-31 06:21 | PC.NURSE ---
Pt slept well this shift, showered this am, and is now sitting up to chair. VSS, lung sounds clear at this time, no cough noted. Denies pain/soa.
[2020-03-31 07:29] VITALS: BP 151/100; PULSE 71; RESP 20; TEMP 36.7; O2SAT 98
[2020-03-31 08:00] VITALS: O2SAT 97
[2020-03-31 08:02] LABS: Basophils % 0.2 % (0.1-2.0); Eosinophils # 0.1 K/mm3 (0.0-0.4); Hematocrit 37.4 % (42.0-52.0); Hemoglobin 12.2 g/dL (14.1-18.0); Lymphocytes # 0.7 K/mm3 (0.7-4.5); Lymphocytes % 11.2 % (10-50); Mean Corpuscular HGB Conc 32.5 g/dL (31.8-35.4); Mean Corpuscular Hemoglobin 29.8 pg (27.0-31.2); Mean Corpuscular Volume 91.6 fl (80-94); Mean Platelet Volume 8.5 fl (7.4-10.4); Monocytes # 0.4 K/mm3 (0.1-1.0); Monocytes % 6.1 % (1.7-9.3); Neutrophils # 5.4 K/mm3 (1.8-7.8); Neutrophils % 80.6 % (37.0-80.0); Platelet Count 118 K/mm3 (142-424); Red Blood Count 4.08 M/mm3 (4.60-6.20); Red Cell Distribution Width 15.9 % (11.5-17.5); White Blood Count 6.6 K/mm3 (4.8-10.8)
[2020-03-31 08:10] LABS: Chloride 109 mmol/L (98-107); Potassium 3.9 mmoL/L (3.5-5.1); Sodium 141 mmol/L (136-145)
[2020-03-31 08:13] LABS: Anion Gap 11.9 mEq/L (5-15); Blood Urea Nitrogen 11 mg/dl (9-20); Calcium 8.8 mg/dl (8.4-10.2); Carbon Dioxide 24 mmol/L (22.0-30.0); Creatinine Clearance Estimated 78 mL/min (50-200); Estimated Glomerular Filt Rate 92 ml/min (>60); GFR (African American) 112 ML/MIN (>60); Glucose 151 mg/dl (74-100)
[2020-03-31 09:34] LABS: Hemoglobin A1C 6.7 % (4.0-6.0)
[2020-03-31 11:21] VITALS: BP 147/80; PULSE 72; RESP 20; TEMP 36.8; O2SAT 95
--- NOTE | 2020-03-31 12:44 | HMH.ACPN2 ---
Internal Medicine - PN: Subj *Date: 03/31/20 *Time: 12:44 Interval history: He slept well, he feels great, he is anxious to be discharged today. He has had very little cough and congestion. This actually makes me more concerned about the area of infiltrate in the right upper lobe. We will see how he clears as an outpatient. He will be discharged on clindamycin. Also, his sugars have run high here and an A1c reveals 6.7% glycosylated hemoglobin. He has not previously been designated as diabetic. Takes no diabetic medications. I will add metformin 500 mg a day. We discussed the possibility of increasing his Entresto dose and recognition of his elevated blood pressures. This would certainly benefit his congestive heart failure. His reports an ejection fraction of less than 35%. Follow-up will be this week with Dr. Mata. Exam Vital signs and Labs for Last 24 Hours: Temp Pulse Resp BP Pulse Ox 98.3 F 72 20 147/80 H 95 03/31/20 11:21 03/31/20 11:21 03/31/20 11:21 03/31/20 11:21 03/31/20 11:21 Laboratory Results - last 24 hr 03/31/20 07:23: WBC 6.6 D, RBC 4.08 L, Hgb 12.2 L, Hct 37.4 L, MCV 91.6, MCH 29.8, MCHC 32.5, RDW 15.9, Plt Count 118 L, MPV 8.5, Neut % (Auto) 80.6 H, Lymph % (Auto) 11.2, [place] % (Auto) 6.1, Eos % (Auto) 2.0, Baso % (Auto) 0.2, Neut # (Auto) 5.4, Lymph # (Auto) 0.7, [place] # (Auto) 0.4, Eos # (Auto) 0.1, Baso # (Auto) 0.0 03/31/20 07:23: Sodium 141, Potassium 3.9, Chloride 109 H, Carbon Dioxide 24, Anion Gap 11.9, BUN 11, Creatinine 0.80, Estimated Creat Clear 78, Estimated GFR 92, Est GFR ( Amer) 112, Glucose 151 H, Calcium 8.8 03/31/20 07:23: Hemoglobin A1c 6.7 H I & O for Last 24 hours: Intake & Output 03/29/20 03/30/20 03/31/20 04/01/20 11:59 11:59 11:59 11:59 Intake Total 1284 / 1284 Balance 1284 / 1284 Weight 218 lb 4 oz 217 lb 8 oz - Constitutional no acute distress - *Routine HEENT Exam Head: Present: normocephalic Eye: Present: PERRL ENT: Present: mucous membranes moist - *Routine Neck Exam Present: trachea midline. Absent: tenderness, swelling - Routine Chest/Breast/Axilla Exam Chest wall: Absent: tenderness - *Routine Respiratory Exam Present: CTA bilaterally (His lungs actually sound quite clear. I hear no wheezes or rales.) - *Routine Cardiovascular Exam Present: RRR - *Routine Extremities Exam Present: edema (trace) - *Routine Skin Exam Present: intact - *Routine Neurological Exam Present: alert, oriented X3. Absent: altered mental status Assessment and Plan (1) Hemoptysis Current visit: Yes Status: Acute Category: Medical Code(s): R04.2 - Hemoptysis (2) Pneumonia, aspiration Current visit: Yes Status: Acute Qualifiers: Aspiration pneumonia type: unspecified Laterality: right Lung location: upper lobe of lung Qualified Code(s): J69.0 - Pneumonitis due to inhalation of food and vomit Category: Medical Code(s): J69.0 - Pneumonitis due to inhalation of food and vomit (3) Coronary artery disease Current visit: Yes Status: Chronic Category: Medical Code(s): I25.10 - Atherosclerotic heart disease of [place] coronary artery without angina pectoris (4) History of [place] (myocardial infarction) Current visit: Yes Status: Chronic Category: Medical Code(s): I25.2 - Old myocardial infarction (5) History of laryngeal cancer Current visit: Yes Status: Chronic Category: Medical Code(s): Z85.21 - Personal history of malignant neoplasm of larynx (6) Hypertension Current visit: Yes Status: Chronic Category: Medical Code(s): I10 - Essential (primary) hypertension (7) Type 2 diabetes mellitus Current visit: Yes Status: Acute Qualifiers: Diabetes mellitus prison insulin use: without exterminator helper termite use Category: Medical Code(s): E11.9 - Type 2 diabetes mellitus without complications (8) Ischemic cardiomyopathy Current visit: Yes Status: Acute Categor
--- NOTE | 2020-03-31 14:19 | HMH.PHAVTE ---
[facility] Pharmacy VTE Monitoring - Patient Demographics Admission date: 03/31/20 Report Date: 03/31/20 Time: 14:19 Allergies/Adverse Reactions: Patient Allergies No Known Allergies Allergy (Verified 09/22/19 11:51) Height: 1.73 m Weight: 98.656 kg Patient Problems: Current Active Problems Hemoptysis (Acute) Pneumonia, aspiration (Acute) Coronary artery disease (Chronic) History of [place] (myocardial infarction) (Chronic) History of laryngeal cancer (Chronic) Hypertension (Chronic) Type 2 diabetes mellitus (Acute) Ischemic cardiomyopathy (Acute) - VTE Risk Labs: VTE Related Lab Results Hgb 12.2 g/dL (14.1-18.0) L 03/31/20 07:23 Hct 37.4 % (42.0-52.0) L 03/31/20 07:23 Plt Count 118 K/mm3 (142-424) L 03/31/20 07:23 BUN 11 mg/dl (9-20) 03/31/20 07:23 Creatinine 0.80 mg/dl (0.66-1.25) 03/31/20 07:23 Estimated Creat Clear 78 mL/min (50-200) 03/31/20 07:23 - Prophylaxis Types of VTE Prophylaxis: TEDS Knee High (WENDY HOSE ORDER PLACED)
--- NOTE | 2020-04-01 21:42 | HMH.DCSUM ---
General - General Admission date:: 03/30/20 Discharge date: 03/31/20 HPI HPI: Mr. Webb is an 84-year-old male presenting to the emergency department with chief complaint of coughing blood. Symptoms started yesterday evening and continued this morning. He had generalized nausea when he went to bed last night. Woke up coughing up thick mucus that was bright red and dark red in color. Was not streaks of blood, was luis enrique clot. He has a chronic cough. Coughs throughout the day and night. Nothing like this has ever happened before. Has a history of laryngeal cancer that was treated with excision in the s. Takes Prilosec, aspirin and antihypertensives, no blood thinners. No vomiting. No current nausea. No recent illness, fevers, chills. No headache, vision changes, weakness. Voice is raspy, but sounds normal to his . No dark tarry stools. No history of alcohol use or varices. (the above as per the ER) The patient does have a history of peptic ulcer disease and was given protonix in the ER. He H&H was normal. He had a CT scan of the chest showing a right upper lobe infiltrate. There was some concern by the ER physician for aspiration. He was started on 1 g of IV Rocephin and 600 mg of IV clindamycin and was admitted for further evaluation and treatment. Hospital Course Hospital Course: The patient had an abdominal pelvic CT showing nothing acute. His chest CT showed a right upper lobe pneumonia with a prominent paratracheal lymph node. He had a soft tissue CT of the neck showing mild asymmetry in the vocal folds with minimal nodularity on the left. He was admitted and started on Rocephin and clindamycin for possible aspiration pneumonia. He was also started on a PPI and some of his home medications. By 03/31/2020, the patient had slept well and felt great. He was anxious to be discharged home. He had very little cough and congestion. His A1c was elevated and he was started on metformin. Dr. Solis also discussed with him about possibly increasing his entresto dose as his blood pressures were elevated. He was stable to be discharged home on oral clindamycin and will follow up with Dr. Mata in the office. Objective Vital signs: Temp Pulse Resp BP Pulse Ox 98.3 F 72 20 147/80 H 95 03/31/20 11:21 03/31/20 11:21 03/31/20 11:21 03/31/20 11:21 03/31/20 11:21 Narrative: - Constitutional no acute distress (Resting comfortably in bed) - *Routine HEENT Exam Head: Present: normocephalic (Bunny complexion) Eye: Present: PERRL ENT: Present: mucous membranes moist - *Routine Neck Exam Absent: JVD, carotid bruit, lymphadenopathy, thyromegaly, tenderness, tracheal deviation - *Routine Respiratory Exam Present: decreased breath sounds, CTA bilaterally. Absent: rales, respiratory distress, wheezes - *Routine Cardiovascular Exam Present: RRR - *Routine Abdominal Exam Present: soft, obese. Absent: tenderness - *Routine Extremities Exam Absent: edema - *Routine Neurological Exam Present: alert, oriented X3, normal speech (Sounds a bit hoarse) DS: Diagnosis - Discharge Diagnosis (1) Hemoptysis Status: Acute (2) Pneumonia, aspiration Status: Acute (3) Coronary artery disease Status: Chronic (4) History of [place] (myocardial infarction) Status: Chronic (5) History of laryngeal cancer Status: Chronic (6) Hypertension Status: Chronic (7) Type 2 diabetes mellitus Status: Acute (8) Ischemic cardiomyopathy Status: Acute Discharge Plan - Patient Discharge Instructions ACTIVITY: Limited activity DIET: advance to your usual diet Patient Instructions: DI for Hemoptysis - Follow up Plan Follow up with: Jaren Mata MD [Primary Care Provider] - 04/04/20 Disposition: Home, Self-Long Term Medications: Home Medications Medication Instructions Recorded Confirmed Type Pantoprazole Sodium [Protonix 40mg 40 mg
== END 2020-03-31 15:48 | disposition home or self-care (01) ==
LOC: ER 10:58 → 2ND 14:51
PROVIDERS: Emergency Medicine; Admitting Provider Family Medicine; Emergency Provider Emergency Medicine; PCP Family Medicine; Visit Provider Family Medicine
DX: J69.0 Pneumonitis due to inhalation of food and vomit (principal); I25.10 Atherosclerotic heart disease of native coronary artery without angina pectoris; J44.9 Chronic obstructive pulmonary disease, unspecified; Z85.21 Personal history of malignant neoplasm of larynx; Z95.5 Presence of coronary angioplasty implant and graft; I25.2 Old myocardial infarction; I70.203 Unspecified atherosclerosis of native arteries of extremities, bilateral legs; Z87.891 Personal history of nicotine dependence; Z79.84 Long term (current) use of oral hypoglycemic drugs; Z79.82 Long term (current) use of aspirin; Z79.899 Other long term (current) drug therapy
CPT/HCPCS: 70491; 71045; 71260; 74177; 80048; 80053; 83036; 85007; 85025; 85651; 86140; 86328; 86850; 96365; 96367; 96375; 99285; G0378; Q9967

== ENCOUNTER → 2020-04-04 10:03 | Outpatient (CLI) | payer MEDICARE, OTHER, SELFPAY ==
--- NOTE | 2020-04-04 10:11 | XR_ITS ---
PROCEDURE: XR CHEST 2V CLINICAL HISTORY: PNEUMONIA COMPARISON: CR CXR CHEST(2 VIEWS-NOT PORTABLE) from 10/22/2012 CR CXR2V XR chest 2V from 05/13/2018 CR XR CHEST PORTABLE from 03/30/[address] CHEST W CON from 03/30/2020 FINDINGS: There is cardiomegaly without failure. Right upper lobe pneumonia has improved. There is an azygos fissure as a normal variant. No acute bony abnormalities. IMPRESSION: Cardiomegaly with improvement in right upper lobe pneumonia Dictated by: Dickson Chaney MD 04/04/2020 11:12 Dickson Chaney MD in [place] 04/04/2020 11:12
== END ==
PROVIDERS: PCP Family Medicine; Visit Provider Family Medicine
DX: J18.9 Pneumonia, unspecified organism (principal)
CPT/HCPCS: 71046

== ENCOUNTER → 2020-10-22 11:12 | Outpatient (POV) | payer MEDICARE, OTHER, SELFPAY | PROVIDERS: Visit Provider Dermatology | DX: Z00.00 Encounter for general adult medical examination without abnormal findings (principal) ==

== ENCOUNTER → 2020-11-26 11:58 | Outpatient (CLI) | payer MEDICARE, OTHER, SELFPAY ==
--- NOTE | 2020-11-26 12:04 | XR_ITS ---
PROCEDURE: XR KNEE RT 3V CLINICAL INDICATION: PAIN IN RT KNEE, ARTHRITIS OF RT KNEE COMPARISON: No exams were available for comparison FINDINGS: No fracture or dislocation. No lytic or blastic change. There is normal mineralization. There is no significant joint space narrowing. There is minimal spurring of the tibial spines. There is minimal calcification of the medial lateral meniscus. There is mild narrowing of patellofemoral space, there is no definite effusion. There is minimal calcification of popliteal artery. 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 Tyson Mcdaniel MD 11/26/2020 12:38 Dr. Tyson Mcdaniel MD in [place] 11/26/2020 12:38
== END ==
PROVIDERS: PCP Family Medicine; Visit Provider Family Medicine
DX: M25.561 Pain in right knee (principal); M17.11 Unilateral primary osteoarthritis, right knee
CPT/HCPCS: 73562

== ENCOUNTER → 2020-12-23 09:38 | Outpatient (CLI) | payer MEDICARE, OTHER, SELFPAY ==
--- NOTE | 2020-12-23 09:43 | XR_ITS ---
PROCEDURE: XR KNEE RT 4V CLINICAL INDICATION: RT knee pain COMPARISON: CR XR KNEE LT 4V from 09/18/2019 CR XR KNEE RT 3V from 11/26/2020 FINDINGS: No fracture or dislocation. No lytic or blastic change. There is normal mineralization. There are moderate osteoarthritic changes of the right knee with narrowing of the joint space and osteophyte formation. There is a small suprapatellar effusion and there is generalized vascular calcification. Other findings:None. IMPRESSION: No change moderate osteoarthritic changes with small knee joint effusion Dictated by: Dickson Chaney MD 12/23/2020 10:16 Dickson Chaney MD in [place] 12/23/2020 10:16
== END ==
PROVIDERS: PCP Family Medicine; Visit Provider Orthopaedic Surgery
DX: M17.11 Unilateral primary osteoarthritis, right knee (principal)
CPT/HCPCS: 73564

== ENCOUNTER → 2021-02-28 11:39 | Outpatient (CLI) | payer MEDICARE, OTHER, SELFPAY ==
[2021-02-28 15:02] LABS: Anion Gap 8.8 mEq/L (5-15); Blood Urea Nitrogen 17 mg/dl (9-20); Carbon Dioxide 29 mmol/L (22.0-30.0); Chloride 106 mmol/L (98-107); Potassium 4.8 mmoL/L (3.5-5.1); Sodium 139 mmol/L (136-145)
[2021-02-28 15:03] LABS: Calcium 9.2 mg/dl (8.4-10.2); Estimated Glomerular Filt Rate 80 ml/min (>60); GFR (African American) 97 ML/MIN (>60); Glucose 102 mg/dl (74-100)
[2021-02-28 15:04] LABS: 25-OH Vitamin D, Total 37.3 ng/mL (30-100)
[2021-02-28 15:18] LABS: Hemoglobin A1C 6.2 % (4.0-6.0)
== END ==
PROVIDERS: Visit Provider Family Medicine
DX: E11.9 Type 2 diabetes mellitus without complications (principal); E55.9 Vitamin D deficiency, unspecified
CPT/HCPCS: 36415; 80048; 82306; 83036

== ENCOUNTER → 2021-12-31 06:20 | Outpatient (CLI) | payer MEDICARE, OTHER, SELFPAY ==
--- NOTE | 2021-12-31 | CA_ITS ---
APPROVED REPORT EXAM: Comprehensive 2D, Doppler, and color-flow Echocardiogram Manager Mission: Debbie Zavala CRT Ht: 5 ft 8 in Wt: 270lbs BSA: 2.32 BP: 124/86 mmHg Indications: Congestive Heart Failure, COPD, Shortness of Breath, CAD, Hypertension/HDD, known EF 15-25% 12/18/19, hx throat CA, stent, ex smoker 2D Dimensions LVOT 1.90 cm (M/F) 1.5-2.5 M-Mode Dimensions RVDd 1.94 cm (0.9-2.6) LA Diam 4.52 cm (1.9-4.0) LVDd 6.35 cm (3.5-5.7) Ao Diam 3.67 cm (2.0-3.7) LVDs 5.69 cm (3.5-5.7) IVSd 1.24 cm (0.6-1.1) PWd 0.90 cm (0.6-1.1) EF (Teich) 22.20% FS 10.40% EDV (Teich) 204.80 mL TAPSE 2.02 (<1.7) ESV (Teich) 159.40 mL LV Diastology E Decel Time 163.00 (160-240 msec) E/A Ratio 1.23 MED E' 2.60 (< 7 cm/sec) MED A' 3.60 cm/s E'/MED E' Ratio 35.19 (>14) LAT E' 5.20 (<10 cm/sec) LAT A' 7.40 cm/s E/LAT E' Ratio 17.60 (>14) Aortic Valve AI PHT 350.00 ms AO Peak GR. 7.30 mmHg Mitral Valve MV E Max Silvestre. 91.00 (40-130 cm/s) MV A Velocity 74.00 (40-130 cm/s) E/A Ratio 1.23 MV Decel. Time 163.00 (160-240 ms) MV PHT 48.00 ms Pulmonary Valve PV Peak Velocity 106.00 (50-150 cm/s) Tricuspid Valve TR P. Velocity 274.00 cm/s RAP Estimate 10.00 mmHg RVSP 40.00 mmHg Left Ventricle Left atrium is moderately enlarged, left ventricle is moderately dilated, severe reduced left ventricular systolic function, estimated ejection fraction approximately 20%, there is marked hypokinesis involving mid to distal septum, anterior, apical and inferior wall. Grade 2 diastolic dysfunction seen with tissue Doppler evidence of raise left atrial pressure. Right Ventricle Right atrium and right ventricle mildly enlarged with normal contractility. Aortic Valve Aortic valve is thickened and calcified without aortic stenosis, there is mild aortic insufficiency. Mitral Valve Mitral valve leaflets are minimally thickened, there is mild mitral regurgitation. Tricuspid Valve Tricuspid valve is grossly normal, there is mild tricuspid regurgitation, tricuspid regurgitation jet velocity is inadequate for calculation of the right ventricular systolic pressure. Pulmonic Valve Pulmonic valve is poorly visualized. Great Vessels Aortic root is normal size. Inferior vena cava is poorly visualized. Pericardium No significant pericardial effusion noted. Conclusion 1. Technically difficult and poor study because of the patient factors and poor acoustic windows. 2. Dilated left atrium and left ventricle, severe reduced left ventricular systolic function, estimated ejection fraction 20% with segmental wall motion abnormality described above, grade 2 diastolic dysfunction seen with tissue Doppler evidence of left atrial pressure. 3. Mild mitral and tricuspid regurgitation. 4. No significant pericardial effusion. 5. Inferior vena cava is poorly visualized. Electronically signed by : Tres Nuñez MD 01/01/2022 06:07:29
--- NOTE | 2021-12-31 | CA_ITS ---
APPROVED REPORT Exam: Pharmacologic Technologist: Nell Bahena Ht: 5 ft 8 in Wt: 221 lbs BSA: 2.13 m2 HR: 62 bpm BP: 162/87 mmHg Rhythm: NSR, incomplete LBBB, old anteriseptal and lateral MIs, ST-T abns inferiorly, Medical History Medical History: Diabetes, HTN Medications: Aspirin,,,,, Pantoprazole,,,,, Carvedilol,,,,, Cardiac Risk Factors: HTN, Diabetes (non-insulin) Stress Test Details Test: LEXISCAN HR Resting HR: 66 bpm Max Heart Rate (APMHR): 135.851327 bpm Max HR Achieved: 80 bpm Target HR (85% APMHR): 114.982371 bpm % of APMHR: 59.26 Recovery HR: 71 bpm BP Resting BP: 162/87 mmHg Max BP: 163/90 mmHg Recovery BP: 161.0/90.0 mmHg ECG Resting ECG: NSR, incomplete LBBB, old anteroseptal and lateral MIs, ST-T abns inferiorly Clinical Exercise duration: 04:00 min Highest Stage Achieved: Exercise capacity: 1.0 METs Stress ECG Conclusion During lexiscan pt experinced no symptoms. Occasional PVC. Rare PAC noted. No significant changes. Unremarkable lexiscan stress. Myoview images reported separately. Test Summary REST . . . . . . . Sitting REST 04:28 . . 66 . 162/ 87 . . Stage 1 01:00 . . 70 . . . . Stage 2 01:00 . . 75 . 151/ 81 . . Stage 3 01:00 . . 65 . . . . Stage 4 01:00 . . 72 . 163/ 90 . Stop exercise at 04:00 RECOVERY 01:00 . . 74 . . . . RECOVERY 02:00 . . 69 . 161/ 90 . . RECOVERY 03:00 . . 67 . 161/ 90 . . RECOVERY 04:00 . . 67 . 163/ 82 . . RECOVERY 04:13 . . 69 . 163/ 82 . . Electronically signed by : Tres Nuñez MD 01/01/2022 06:23:56
--- NOTE | 2021-12-31 06:30 | NM_ITS ---
APPROVED REPORT Exam: Nuclear Stress Test Indication: SOB, HTN, DM, CAD, Hx of NM Patient Location: Outpatient Stress Tech: Nell Bahena [place] Tech:Helen Villagomez, ARRT, RT (R)(N) Ht: 5 ft 8 in Wt: 217 lbs HR: 66 bpm BP: 162/87 mmHg BSA: 2.12 m2 TID: 1.11 BMI: 32.9 History: SOB, HTN, DM, CAD, Hx of NM Procedure: Patient received a 0.4 mg of intravenous Lexiscan, resting heart rate 66 bpm, resting blood pressure 162/87 mmHg, with Lexiscan maximum heart rate achived was 80 bpm which is Less than 85 % of the maximum predicted heart rate and blood pressure was 163/90 mmHg. With Lexiscan, patient denied any complaint of chest pain. Electrocardiogram Resting electrocardiogram shows sinus rhythm with intraventricular conduction delay nonspecific ST-T changes, with Lexiscan there is less than 1.[address] segment depression noted from the baseline EKG. The EKG portion of the Lexiscan is nondiagnostic. Cardiac Stress and Resting SPECT Images: Cardiac Stress and Resting SPECT images were obtained using technetium 99m Myoview 32.5 mCi stress and 10.09 mCi at rest. Gated SPECT for analysis of segmental wall motion and calculation of the ejection fraction also done. Prone images were also obtained. Cardiac stress and rest SPECT images show a large area of myocardial scarring involving the anterior, anterior apical, anteroseptal and inferolateral wall without significant ori-infarct ischemia. Left ventricle is dilated, computer derived ejection fraction is 18% with marked hypokinesis involving the anterior, apex, anteroseptal and inferolateral wall. Right ventricle is mildly enlarged with normal contractility. Conclusion: 1. The EKG portion of the Lexiscan is nondiagnostic. 2. Scintigraphic evidence of extensive myocardial scarring involving the anterior, anterior apical, apex, anteroseptal and inferolateral wall without significant ori-infarct ischemia. Left ventricle is dilated with stress and rest. Computer derived ejection fraction is 18% with multiple segmental wall motion abnormalities as described above. Right ventricle is mildly enlarged with normal contractility. 3. Abnormal Lexiscan Myoview study. Electronically signed by : Tres Nuñez MD 01/01/2022 06:27:47
--- NOTE | 2021-12-31 08:24 | HMH.ITSHM ---
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 []CARVEDILOL PANTOPRAZOLE ASA
== END ==
PROVIDERS: PCP Family Medicine; Visit Provider Internal Medicine Cardiovascular Disease
DX: R06.02 Shortness of breath (principal)
CPT/HCPCS: 78452; 93017; 93306; A9502; J2785

== ENCOUNTER → 2022-01-16 09:47 | Outpatient (CLI) | payer MEDICARE, OTHER, SELFPAY ==
--- NOTE | 2022-01-16 09:50 | XR_ITS ---
FINAL REPORT CLINICAL HISTORY: Lt knee pain @ popliteal surface x 1 yr, worsened x recent mos. NKT COMPARISON: September 18, 2019 FINDINGS: LEFT KNEE: Three views of the left knee were obtained. There is no acute fracture or dislocation. There are moderate and severe degenerative changes, worst involving the medial compartment. There is no joint effusion. There are mild vascular calcifications. IMPRESSION: Stable degenerative changes with no acute bony abnormality. Reviewed, Interpreted and Dictated by Moises Meneses III, MD Transcribed by Fifi Reyes Authenticated and [facility]
== END ==
PROVIDERS: PCP Family Medicine; Visit Provider Orthopaedic Surgery
DX: M25.562 Pain in left knee (principal)
CPT/HCPCS: 73564

== ENCOUNTER → 2023-03-08 10:53 | Outpatient (CLI) | payer MEDICARE, OTHER, SELFPAY ==
[2023-03-08 11:28] LABS: Basophils % 0.4 % (0.1-2.0); Eosinophils # 0.2 K/mm3 (0.0-0.4); Eosinophils % 4.5 % (0.1-12.0); Hematocrit 43.5 % (42.0-52.0); Hemoglobin 13.8 g/dL (14.1-18.0); Lymphocytes # 0.9 K/mm3 (0.7-4.5); Lymphocytes % 18.4 % (10-50); Mean Corpuscular HGB Conc 31.8 g/dL (31.8-35.4); Mean Corpuscular Hemoglobin 30.9 pg (27.0-31.2); Mean Corpuscular Volume 97.2 fl (80-94); Mean Platelet Volume 8.1 fl (7.4-10.4); Monocytes # 0.4 K/mm3 (0.1-1.0); Neutrophils # 3.1 K/mm3 (1.8-7.8); Neutrophils % 67.7 % (37.0-80.0); Platelet Count 139 K/mm3 (142-424); Red Blood Count 4.48 M/mm3 (4.60-6.20); Red Cell Distribution Width 14.5 % (11.5-17.5); White Blood Count 4.7 K/mm3 (4.8-10.8)
[2023-03-08 12:22] LABS: Chloride 108 mmol/L (98-107); Potassium 4.4 mmoL/L (3.5-5.1); Sodium 145 mmol/L (136-145)
[2023-03-08 12:24] LABS: Bilirubin,Unconjugated 0.2 mg/dL (0.0-1.1); Blood Urea Nitrogen 15 mg/dl (9-20); Estimated Glomerular Filt Rate 92 ml/min (>60); GFR (African American) 111 ML/MIN (>60)
[2023-03-08 12:25] LABS: Alanine Aminotransferase 26 U/L (12-78); Albumin Level 3.8 g/dl (3.5-5.0); Alkaline Phosphatase 92 U/L (38-126); Anion Gap 11.4 mEq/L (5-15); Aspartate Amino Transferase 27 U/L (17-59); Bilirubin,Direct 0.3 mg/dl (0.0-0.4); Bilirubin,Indirect 0.1 mg/dL (0.0-0.9); Bilirubin,Total 0.4 mg/dl (0.2-1.3); Calcium 10.3 mg/dl (8.4-10.2); Carbon Dioxide 30 mmol/L (22.0-30.0); Chol/HDL Ratio 6.6 (1-3.5); Cholesterol 184 mg/dl (140-200); Glucose 132 mg/dl (74-100); HDL Cholesterol 28 mg/dl (40-60); Total Protein,Serum 6.6 g/dl (6.3-8.2); Triglycerides 144 mg/dl (30-150); VLDL Cholesterol 29 mg/dL (0-40)
[2023-03-08 12:36] LABS: Direct LDL Cholesterol 121.34 mg/dL (100-129)
[2023-03-08 12:42] LABS: Free T4 (Free Thyroxine) 0.81 ng/dl (0.78-2.19)
[2023-03-08 12:55] LABS: Thyroid Stimulating Hormone 2.56 uIU/mL (0.465-4.68)
== END ==
PROVIDERS: PCP Family Medicine; Visit Provider Internal Medicine
DX: E11.9 Type 2 diabetes mellitus without complications (principal); I25.10 Atherosclerotic heart disease of native coronary artery without angina pectoris; I25.2 Old myocardial infarction; I25.5 Ischemic cardiomyopathy; R06.00 Dyspnea, unspecified; R42 Dizziness and giddiness; I11.9 Hypertensive heart disease without heart failure; I63.9 Cerebral infarction, unspecified
CPT/HCPCS: 36415; 80048; 80061; 80076; 84439; 84443; 85025

== ENCOUNTER → 2023-03-23 07:21 | Outpatient (CLI) | payer MEDICARE, OTHER, SELFPAY ==
--- NOTE | 2023-03-23 07:28 | CA_ITS ---
APPROVED REPORT EXAM: Comprehensive 2D, Doppler, and color-flow Echocardiogram Methodologist: Elizabeth Ibarra RT(R) Ht: 5 ft 8 in Wt: 217lbs BSA: 2.12 BP: 158/72 mmHg Indications: CP, SOB, COPD, HTN, edema, fatigue, hx of throat cancer, CHF, cardiac stent, CM, EF 20% on echo (12/31/21). Echo Enhancing Agent Indication: Endocardial border delineation Agent(s) / Amount(s) Used: Definity 2 cc 2D Dimensions LVOT 2.03 cm (M/F) 1.5-2.5 LA Volume 93.00 mL LA Volume Index 43.87 mL/m2 (M/F) 16-34 M-Mode Dimensions RVDd 1.48 cm (0.9-2.6) LA Diam 4.88 cm (1.9-4.0) LVDd 6.63 cm (3.5-5.7) Ao Diam 2.90 cm (2.0-3.7) LVDs 5.91 cm (3.5-5.7) IVSd 0.83 cm (0.6-1.1) PWd 0.57 cm (0.6-1.1) EF (Teich) 23.00% FS 10.90% EDV (Teich) 225.90 mL ESV (Teich) 173.90 mL LV Diastology E Decel Time 173.00 (160-240 msec) E/A Ratio 1.2 MED E' 5.00 (< 7 cm/sec) E'/MED E' Ratio 20.36 (>14) LAT E' 7.60 (<10 cm/sec) E/LAT E' Ratio 13.39 (>14) Mitral Valve MV E Max Silvestre. 102.00 (40-130 cm/s) MV A Velocity 82.00 (40-130 cm/s) E/A Ratio 1.25 MV Decel. Time 173.00 (160-240 ms) MV PHT 51.00 ms Left Ventricle Left ventricle is severely dilated. Left ventricular systolic function is severely decreased. There is normal left ventricular wall thickness. There is akinesis of the mid to distal inferior and inferoseptal LV avina, as well as the LV apical region. There is grade II diastolic dysfunction. No left ventricle thrombus noted on this study. LVEF is 20%. Right Ventricle Right ventricle is mildly dilated. The right ventricular systolic function is normal. Atria Left atrium is moderately dilated. The right atrium size is normal. Aortic Valve The aortic valve is moderately thickened. There is no aortic valvular stenosis. Trace aortic regurgitation. Mitral Valve The mitral valve is mildly thickened. No evidence of mitral valve stenosis. Mild mitral regurgitation. Tricuspid Valve The tricuspid valve leaflets are thin and pliable. Trace tricuspid regurgitation. There is insufficient TR jet to estimate RVSP. Pulmonic Valve The pulmonary valve is normal in structure. Trace pulmonic regurgitation. Great Vessels The aortic root is normal in size. The ascending aorta is not well visualized. The IVC is not well visualized. Pericardium There is no pericardial effusion. Other Information Study Quality: Fair Conclusion Severe LV dilation with severe reduction in LVEF. Wall motion abnormalities are present. No evidence of LV thrombus with administration of ultrasound enhancing agent (UEA) Dilated RV with normal RV function. No significant valvular stenosis or regurgitation. Electronically signed by : Niurka Pitts, 03/23/2023 15:34:26
== END ==
PROVIDERS: PCP Family Medicine; Visit Provider Internal Medicine
DX: E11.9 Type 2 diabetes mellitus without complications (principal); I10 Essential (primary) hypertension; I25.10 Atherosclerotic heart disease of native coronary artery without angina pectoris; I25.2 Old myocardial infarction; I25.5 Ischemic cardiomyopathy; R06.09 Other forms of dyspnea; R42 Dizziness and giddiness
CPT/HCPCS: 93306; Q9957

== ENCOUNTER → 2023-08-04 10:43 | Outpatient (CLI) | payer MEDICARE, OTHER, SELFPAY ==
[2023-08-04 11:03] LABS: Basophils % 0.3 % (0.1-2.0); Eosinophils # 0.2 K/mm3 (0.0-0.4); Eosinophils % 3.2 % (0.1-12.0); Hematocrit 43.7 % (42.0-52.0); Lymphocytes % 16.6 % (10-50); Mean Corpuscular HGB Conc 34.5 g/dL (31.8-35.4); Mean Corpuscular Hemoglobin 32.3 pg (27.0-31.2); Mean Corpuscular Volume 93.7 fl (80-94); Monocytes # 0.5 K/mm3 (0.1-1.0); Monocytes % 7.8 % (1.7-9.3); Neutrophils # 4.5 K/mm3 (1.8-7.8); Neutrophils % 72.2 % (37.0-80.0); Platelet Count 148 K/mm3 (142-424); Red Blood Count 4.66 M/mm3 (4.60-6.20); Red Cell Distribution Width 14.3 % (11.5-17.5); White Blood Count 6.2 K/mm3 (4.8-10.8)
[2023-08-04 11:57] LABS: Alanine Aminotransferase 29 U/L (12-78); Albumin Level 4.3 g/dl (3.5-5.0); Alkaline Phosphatase 58 U/L (38-126); Anion Gap 10.3 mEq/L (5-15); Aspartate Amino Transferase 31 U/L (17-59); Bilirubin,Direct 0.1 mg/dl (0.0-0.4); Bilirubin,Indirect 0.6 mg/dL (0.0-0.9); Bilirubin,Total 0.7 mg/dl (0.2-1.3); Bilirubin,Unconjugated 0.6 mg/dL (0.0-1.1); Blood Urea Nitrogen 16 mg/dl (9-20); Calcium 9.5 mg/dl (8.4-10.2); Carbon Dioxide 29 mmol/L (22.0-30.0); Chloride 103 mmol/L (98-107); Chol/HDL Ratio 8.3 (1-3.5); Cholesterol 198 mg/dl (140-200); Estimated Glomerular Filt Rate 63 ml/min (>60); GFR (African American) 77 ML/MIN (>60); Glucose 110 mg/dl (74-100); HDL Cholesterol 24 mg/dl (40-60); Magnesium 1.7 mg/dl (1.6-2.3); Potassium 4.3 mmoL/L (3.5-5.1); Sodium 138 mmol/L (136-145); Total Protein,Serum 7.1 g/dl (6.3-8.2); Triglycerides 213 mg/dl (30-150); VLDL Cholesterol 43 mg/dL (0-40)
[2023-08-04 12:08] LABS: Direct LDL Cholesterol 120.93 mg/dL (100-129)
[2023-08-04 12:14] LABS: Free Thyroxine Index 2.3 ug/dL (5.93-13.13); T4 (Thyroxine) 6.5 ug/dl (5.53-11.0); Triiodothryronine (T3) Uptake 36 % (23.5-40.5)
[2023-08-04 12:28] LABS: Thyroid Stimulating Hormone 3.01 uIU/mL (0.465-4.68)
== END ==
LOC: LAB 10:45
PROVIDERS: PCP Family Medicine; Visit Provider Internal Medicine
DX: I25.5 Ischemic cardiomyopathy (principal); I25.2 Old myocardial infarction; I10 Essential (primary) hypertension; Z85.21 Personal history of malignant neoplasm of larynx; Z87.891 Personal history of nicotine dependence
CPT/HCPCS: 36415; 80048; 80061; 80076; 83735; 84436; 84443; 84479; 85025

== ENCOUNTER 2023-08-10 11:31 | Observation (INO) | payer MEDICARE, OTHER, SELFPAY ==
[2023-08-10] VITALS (15 sets, daily range): BP systolic 111–166; BP diastolic 54–108; PULSE 56–75; RESP 17–19; TEMP 36.9; O2SAT 90–99; BMI 31.7; BMI 32.5
--- NOTE | 2023-08-10 07:00 | CA_ITS ---
APPROVED REPORT EXAM: Comprehensive 2D, Doppler, and color-flow Echocardiogram [employer]: Elizabeth Ibarra RT(R) Ht: 5 ft 8 in Wt: 204lbs BSA: 2.06 BP: 124/73 mmHg Indications: SOA, HTN, DM, abn GXT, CM, CAD, ex smoker, EF 20% 03/23/23. 2D Dimensions LA Volume 63.90 mL LA Volume Index 31.02 mL/m2 (M/F) 16-34 M-Mode Dimensions RVDd 2.05 cm (0.9-2.6) LA Diam 4.48 cm (1.9-4.0) LVDd 6.16 cm (3.5-5.7) LVDs 5.35 cm (3.5-5.7) IVSd 0.93 cm (0.6-1.1) PWd 0.76 cm (0.6-1.1) EF (Teich) 27.60% FS 13.10% EDV (Teich) 191.10 mL ESV (Teich) 138.30 mL LV Diastology E Decel Time 150 (160-240 msec) E/A Ratio 1.3 Mitral Valve MV E Max Silvestre. 110.0 (40-130 cm/s) MV A Velocity 84.0 (40-130 cm/s) E/A Ratio 1.31 MV PHT 44.0 ms Left Ventricle Left ventricle is severely dilated. The left ventricular systolic function is severely reduced. There is normal left ventricular wall thickness. There is severe global hypokinesis present. There is akinesis of the distal inferior and inferoseptal LV avina. Grade 2 diastolic dysfunction is present. LVEF is 20%. Right Ventricle The right ventricle is normal size. The right ventricular systolic function is normal. Atria Left atrium is mildly dilated. The right atrium size is normal. The interatrial septum is not well visualized. Aortic Valve The aortic valve is mildly thickened. There is no aortic valvular stenosis. Trace aortic regurgitation. Mitral Valve The mitral valve leaflets are mildly thickened. No evidence of mitral valve stenosis. Mild mitral regurgitation. Tricuspid Valve The tricuspid valve leaflets are thin and pliable. Trace tricuspid regurgitation. There is insufficient TR jet to estimate RVSP. Pulmonic Valve The pulmonary valve is normal in structure. Trace pulmonic regurgitation. Great Vessels The aortic root is normal in size. The ascending aorta is not well visualized. The IVC is not well visualized. Pericardium There is no pericardial effusion. Other Information Study Quality: Technically Difficult Conclusion Technically difficult study due to poor accoustic windows. Severely dilated LV with severe reduction in LV systolic function (LVEF 20%). Akinesis of the distal inferior and inferoseptal LV avina. Mild MR. Electronically signed by : Niurka Pitts MD 08/10/2023 17:37:21
--- NOTE | 2023-08-10 07:19 | IR_ITS ---
APPROVED REPORT Patient Location: Outpatient Human Resources Benefits Administrator: CAROL Vincent RT (R) PROCEDURES Selective coronary angiogram Drug-eluting stent deployment to the ostial proximal left main artery Drug-eluting stent deployment to the ostial proximal mid and distal LAD in a contiguous manner Drug-eluting stent deployment to the ostial proximal circumflex artery Drug-eluting stent deployment to the proximal and mid first obtuse marginal artery INDICATION Coronary artery disease, Angina pectoris, Ischemic cardiomyopathy, High risk abnormal Myoview, Ejection fraction 20%, Informed consent was obtained prior to the procedure. COMPLICATIONS NONE Estimated Blood Loss: LESS THAN 10 ML TECHNIQUE One percent lidocaine used to anesthetize the right anterior aspect of the wrist. The right radial artery was accessed via the Seldinger technique. A 6 Italian sheath was placed in the right radial artery. 2.5 mg of Verapamil, 800 mcg of nitroglycerin, 1mg Lidocaine and 5000 U Heparin were given through the arterial sheath. The papa catheter waselective coronary angiogram. At the end the diagnostic angiogram therapeutic heparin was administered giving a therapeutic ACT and the guide catheter was placed in left main artery followed by Choice PT extra-support wire down the LAD. A 4 mm x 8 mm Coleman frontier stent was placed in the ostial LAD at 22 cristina reducing the stenosis. This reduced dampening and allowed for deeper insertion of the guide catheter. A guide liner was advanced into the LAD and a 2.5 mm x 20 mm noncompliant balloon was deployed at 20 cristina up and down the mid and proximal LAD. This allowed advancement of the guide liner into the LAD and a 2.75 x 38 mm Coleman frontier stent was deployed at 20 cristina reducing the stenosis. An additional 2.5 x 12 mm Coleman frontier stent was placed distal to the for stent yet still overlapping and deployed at 16 cristina. The balloon was brought back and deployed at 24 cristina to mesh the stents. An additional 2.75 x 38 mm Coleman frontier stent was placed in the ostial LAD extending into the previous 2.75 mm stent and deployed at 22 cristina. ARAMIS-3 flow was present before and after the procedure. After achieving excellent angiographic results the guide liner was pulled back to the left main artery and a Choice PT extra-support wire was placed into the circumflex artery. A 2 mm balloon was used to predilate the critical stenosis. Following this the guide liner was advanced and a 2.75 x 26 mm [place] frontier stent was deployed at 20 cristina in the ostial proximal circumflex artery reducing the critical stenosis. An additional 2.5 x 38 mm Coleman frontier stent was placed into the first obtuse marginal artery overlapping the for stent and deployed at 16 cristina. The balloon was brought back and deployed at 22 cristina to mesh the 2 stents. Excellent graft results were obtained. ARAMIS-3 flow was present before and after the procedure. At the end the procedure the apparatus was removed the sheath was removed and hemostasis was achieved using TR banding patient was transferred to the postoperative in stable addition ANGIOGRAPHIC RESULTS The left main artery Has an ostial 50% stenosis with significant dampening upon catheter insertion The left anterior descending artery Is diffusely calcified throughout and has proximal 50% stenosis with mid vessel diffuse 70% calcified stenoses. The first and second diagonal arteries are large branches with the first diagonal artery having a proximal 50% stenosis. A large bifurcating second diagonal artery has 60% calcified stenoses. The circumflex artery Is a dominant vessel and has a proximal calcified concentric 90% stenosis. The first obtuse marginal artery has 70 and 80% proximal stenosis while the second obtuse marginal artery has an ostial 90% stenosis followed by an additional 60 to 70% stenosis The right coronary artery Is nondominant yet still large and is proximally normal with mid vessel 40% concentric stenoses and distal 30 to 40% stenoses The YAÑEZ ventriculogram reveals Not performed The left ventricular end-diastolic pressure Not measured IMPRESSION Severe disease in the left main artery large LAD system as described above as well as dominant circumflex artery. Successful stenting of the ostial left main artery severe disease reduced to 0% with 1 drug-eluting stent Successful reconstruction of the ostial proximal mid and distal LAD severe calcific disease reduced to 0% with 3 contiguous drug-eluting stents Successful stenting of the ostial proximal mid circumflex artery critical disease reduced to 0% with 1 drug-eluting stent with additional stenting extending into a critically diseased large first obtuse marginal artery Persistent mild to moderate nonflow limiting disease in a nondominant yet still large right coronary PLAN 1. Patient requires admission due to the complexity of the procedure and copious contrast. 2. Gentle IV fluids while making sure patient does not go into heart failure or pulmonary edema 3. Chemistry panel in the morning 4. Dual antiplatelet therapy 5. Cardiac rehabilitation 6. LDL less than 55 to be achieved with high intensity statin 7. If patient is a candidate for LifeVest that should be offered 8. Reevaluate ejection fraction in 90 days to determine if patient is a candidate for AICD placement 9. Standard therapy for systolic heart failure and ischemic cardiomyopathy Electronically signed by : Devin Beth MD 08/10/2023 11:46:36
[2023-08-10] MEDS: NITROGLYCERIN 800MCG/8ML SYR (CATH LAB) 800 MCG IA (10:37)
[2023-08-10] MEDS: LIDOCAINE 1% 10ML MDV 20 ML IJ (10:37)
[2023-08-10] MEDS: VERAPAMIL 2.5MG/ML 2ML VIAL 2.5 MG IV (10:37)
[2023-08-10] MEDS: HEPARIN 1,000 UNITS/ML 10ML VIAL (CATH LAB) 10000 UNIT IV ×2 (10:37→10:58)
[2023-08-10] MEDS: diphenhydrAMINE 50MG/ML VIAL 50 MG IV (10:38)
[2023-08-10] MEDS: 0.9 % SODIUM CHLORIDE 500 ML 25 ML IV (10:38)
[2023-08-10] MEDS: HEPARIN 1,000 UNITS/500ML NS (CATH LAB) 3000 UNIT IV (10:38)
[2023-08-10] MEDS: MIDAZOLAM HCL 1MG/1ML 5ML VIAL 1 MG IV (10:58)
[2023-08-10] MEDS: FENTANYL 100MCG/2ML VIAL 50 MCG IV (10:58)
[2023-08-10] MEDS: CLOPIDOGREL 300MG TABLET 600 MG PO (11:35)
[2023-08-10] MEDS: IOPAMIDOL-370 (76%);100ML BOTTLE 220 ML IV (12:19)
[2023-08-10 12:21] LABS: CATHL Activated Clotting Time 308 SEC (74-125)
[2023-08-10 12:22] LABS: CATHL Activated Clotting Time > 400 SEC (74-125)
[2023-08-10 13:40] LABS: Blood Urea Nitrogen 11 mg/dl (9-20); Carbon Dioxide 30 mmol/L (22.0-30.0); Creatinine Clearance Estimated 73 mL/min (50-200); Estimated Glomerular Filt Rate 107 ml/min (>60); GFR (African American) 129 ML/MIN (>60); Glucose 105 mg/dl (74-100)
[2023-08-10 13:43] LABS: Basophils % 0.5 % (0.1-2.0); Eosinophils # 0.2 K/mm3 (0.0-0.4); Eosinophils % 3.7 % (0.1-12.0); Hematocrit 45.2 % (42.0-52.0); Hemoglobin 14.3 g/dL (14.1-18.0); Lymphocytes % 19.9 % (10-50); Mean Corpuscular HGB Conc 31.8 g/dL (31.8-35.4); Mean Corpuscular Hemoglobin 31.3 pg (27.0-31.2); Mean Corpuscular Volume 98.6 fl (80-94); Mean Platelet Volume 9.2 fl (7.4-10.4); Monocytes # 0.3 K/mm3 (0.1-1.0); Monocytes % 6.8 % (1.7-9.3); Neutrophils # 3.4 K/mm3 (1.8-7.8); Neutrophils % 69.1 % (37.0-80.0); Platelet Count 134 K/mm3 (142-424); Red Blood Count 4.58 M/mm3 (4.60-6.20); Red Cell Distribution Width 14.4 % (11.5-17.5); White Blood Count 4.9 K/mm3 (4.8-10.8)
[2023-08-10 13:44] LABS: Anion Gap 9.4 mEq/L (5-15); Chloride 106 mmol/L (98-107); Potassium 4.4 mmoL/L (3.5-5.1); Sodium 141 mmol/L (136-145)
--- NOTE | 2023-08-10 14:20 | P.PN_ITS ---
Subjective *Date: 08/10/23 *Time: 14:32 Interval history: Patient had a left heart cath today with numerous stents placed Medical Exam Vital signs and Labs for Last 24 Hours: Vital Signs Temp Pulse Pulse Resp BP Pulse Ox O2 Del Method 08/10/23 13:30 59 L 18 128/73 94 L Room Air 08/10/23 13:00 60 18 144/77 H 96 Room Air 08/10/23 12:45 61 18 131/89 97 Room Air 08/10/23 12:30 65 17 139/78 97 Room Air 08/10/23 12:15 66 19 136/78 98 08/10/23 12:00 61 18 139/74 95 Room Air 08/10/23 11:55 62 17 137/75 90 L Room Air 08/10/23 11:50 60 18 111/73 95 Room Air 08/10/23 11:45 71 69 18 129/72 96 Room Air 08/10/23 07:42 98.4 F 66 18 166/108 H 93 L Room Air O2 Del Method 08/10/23 13:30 08/10/23 13:00 08/10/23 12:45 08/10/23 12:30 08/10/23 12:15 08/10/23 12:00 08/10/23 11:55 08/10/23 11:50 08/10/23 11:45 08/10/23 07:42 Room Air Intake and Output 08/09/23 08/10/23 08/10/23 23:59 07:59 15:59 Intake Total 270 / 270 Balance 270 / 270 Intake: Intake, Oral Amount 270 / 270 Other: Weight 209 lb 214 lb 1 oz Patient Weight 08/10/23 23:59 Weight 214 lb 1 oz Laboratory Results - last 24 hr 08/10/23 11:47: Activated Clotting Time > 400 H* 08/10/23 12:16: Activated Clotting Time 308 H* D 08/10/23 13:12: WBC 4.9, RBC 4.58 L, Hgb 14.3, Hct 45.2, MCV 98.6 H, MCH 31.3 H, MCHC 31.8, RDW 14.4, Plt Count 134 L, MPV 9.2, Neut % (Auto) 69.1, Lymph % (Auto) 19.9, [place] % (Auto) 6.8, Eos % (Auto) 3.7, Baso % (Auto) 0.5, Neut # (Auto) 3.4, Lymph # (Auto) 1.0, [place] # (Auto) 0.3, Eos # (Auto) 0.2, Baso # (Auto) 0.0, Sodium 141, Potassium 4.4, Chloride 106, Carbon Dioxide 30, Anion Gap 9.4, BUN 11, Creatinine 0.70, Estimated Creat Clear 73, Estimated GFR 107, Est GFR ( Amer) 129, Glucose 105 H, Calcium 9.0 I & O for Labs for Last 24 Hours: Intake & Output 08/07/23 08/08/23 08/09/23 08/10/23 23:59 23:59 23:59 23:59 Intake Total 270 / 270 Balance 270 / 270 Weight 214 lb 1 oz Constitutional: Present no acute distress Assessment and Plan *Assessment and plan (1) Ischemic cardiomyopathy: Status: Acute Category: Medical Code(s): I25.5 - Ischemic cardiomyopathy (2) Type 2 diabetes mellitus: Status: Acute Qualifiers: Diabetes mellitus complication status: with other specified complication Diabetes mellitus jail insulin use: without jail use Qualified Code(s): E11.69 - Type 2 diabetes mellitus with other specified complication Category: Medical Code(s): E11.9 - Type 2 diabetes mellitus without complications (3) Hypertension: Status: Chronic Qualifiers: Hypertension type: unspecified Qualified Code(s): I10 - Essential (primary) hypertension Category: Medical Code(s): I10 - Essential (primary) hypertension (4) History of [place] (myocardial infarction): Status: Chronic Category: Medical Code(s): I25.2 - Old myocardial infarction (5) Coronary artery disease: Status: Chronic Qualifiers: Associated angina: without angina Coronary Disease-Associated Artery/Lesion type: [place] artery [place] vs. transplanted heart: [place] heart Qualified Code(s): I25.10 - Atherosclerotic heart disease of [place] coronary artery without angina pectoris Category: Medical Code(s): I25.10 - Atherosclerotic heart disease of [place] coronary artery without angina pectoris Plan See cath report, start IVF and repeat labs in the morning.
--- NOTE | 2023-08-10 14:54 | HMH.PHAINT1 ---
Pharmacy Intervention Comments: Verified home med list with patient and family at bedside, and with external pharmacy list.
--- NOTE | 2023-08-10 15:46 | EXP.CARD.PN ---
Subjective Subjective Date: 08/10/23 Time: 15:47 Principal diagnosis: CAD, Cardiomyopathy Interval history: 87-year-old white male with known cardiomyopathy and EF of around 20% was admitted after cardiac catheterization today and multivessel stenting. Due to the amount of contrast use he was admitted for IV fluids and monitoring overnight. Patient was seen in the office by Dr. Pitts last week with discussion regarding a LifeVest, which patient declined. Exam Data for Last 24 hours Vital signs and Labs for Last 24 Hours: Temp Pulse Resp BP Pulse Ox O2 Del Method 98.4 F 71 18 137/67 98 Room Air 08/10/23 07:42 08/10/23 14:30 08/10/23 14:30 08/10/23 14:30 08/10/23 14:30 08/10/23 14:42 Laboratory Results - last 24 hr 08/10/23 11:47: Activated Clotting Time > 400 H* 08/10/23 12:16: Activated Clotting Time 308 H* D 08/10/23 13:12: WBC 4.9, RBC 4.58 L, Hgb 14.3, Hct 45.2, MCV 98.6 H, MCH 31.3 H, MCHC 31.8, RDW 14.4, Plt Count 134 L, MPV 9.2, Neut % (Auto) 69.1, Lymph % (Auto) 19.9, [place] % (Auto) 6.8, Eos % (Auto) 3.7, Baso % (Auto) 0.5, Neut # (Auto) 3.4, Lymph # (Auto) 1.0, [place] # (Auto) 0.3, Eos # (Auto) 0.2, Baso # (Auto) 0.0, Sodium 141, Potassium 4.4, Chloride 106, Carbon Dioxide 30, Anion Gap 9.4, BUN 11, Creatinine 0.70, Estimated Creat Clear 73, Estimated GFR 107, Est GFR ( Amer) 129, Glucose 105 H, Calcium 9.0 I & O for Last 24 hours: Intake & Output 08/08/23 08/09/23 08/10/23 08/11/23 11:59 11:59 11:59 11:59 Intake Total 270 / 270 Balance 270 / 270 Weight 209 lb 214 lb 1 oz Constitutional Constitutional: no acute distress *Routine Respiratory Exam Respiratory: Present CTA bilaterally *Routine Cardiovascular Exam Cardiovascular: Present RRR *Routine Extremities Exam Extremities: Absent edema Progress Note: A&P Assessment and plan (1) Ischemic cardiomyopathy: Status: Acute (2) Type 2 diabetes mellitus: Status: Acute (3) Hypertension: Status: Chronic (4) History of [place] (myocardial infarction): Status: Chronic (5) Coronary artery disease: Status: Chronic Assessment and Plan Assessment and Plan for All Diagnoses:: 1. Ischemic cardiomyopathy (history of FL and stenting approximately 10 years ago) with EF of 20% by echocardiogram today -Continue Coreg and Entresto along with Maxide as directed. Patient previously intolerant to Jardiance -Reevaluate EF in 45 days with limited echo but will need to wait a total of 90 days for AICD implantation if needed. 2. Multivessel CAD -Status post JUDY to left main, ostial, proximal, mid and distal LAD and circumflex arteries with a total of 5 stents. Persistent nonflow limiting mild to moderate CAD of RCA remains 3. Dyslipidemia with LDL 120.9 on 08/04/2023 -Patient intolerant to statins -Consider Leqvio or Repatha as an outpatient 4. Hypertension, controlled 5. Diabetes mellitus type 2, per Dr. Mata Check BMP in a.m. and if no evidence of BRIANNA then patient could be discharged home from a cardiac standpoint to resume home medications with addition of Plavix 75 mg daily. Follow-up in her office in 1 week
[2023-08-10] MEDS: 0.9 % SODIUM CHLORIDE 1000ML 1,000 ML 75 ML IV (16:03)
[2023-08-11] VITALS: BP 157/84; PULSE 79; PULSE 93; RESP 17; TEMP 36.6; O2SAT 96
[2023-08-11 04:00] VITALS: BP 154/92; PULSE 95; PULSE 99; RESP 17; TEMP 36.6; O2SAT 93; BMI 32.8
[2023-08-11] MEDS: 0.9 % SODIUM CHLORIDE 1000ML 1,000 ML 75 ML IV (05:34)
[2023-08-11 07:20] LABS: Basophils % 0.3 % (0.1-2.0); Eosinophils # 0.2 K/mm3 (0.0-0.4); Eosinophils % 2.6 % (0.1-12.0); Hematocrit 44.8 % (42.0-52.0); Hemoglobin 15.2 g/dL (14.1-18.0); Lymphocytes # 0.9 K/mm3 (0.7-4.5); Lymphocytes % 12.8 % (10-50); Mean Corpuscular HGB Conc 33.8 g/dL (31.8-35.4); Mean Corpuscular Hemoglobin 32.2 pg (27.0-31.2); Mean Corpuscular Volume 95.1 fl (80-94); Monocytes # 0.6 K/mm3 (0.1-1.0); Monocytes % 8.1 % (1.7-9.3); Neutrophils # 5.2 K/mm3 (1.8-7.8); Neutrophils % 76.2 % (37.0-80.0); Platelet Count 140 K/mm3 (142-424); Red Blood Count 4.71 M/mm3 (4.60-6.20); Red Cell Distribution Width 14.3 % (11.5-17.5); White Blood Count 6.9 K/mm3 (4.8-10.8)
[2023-08-11 07:24] VITALS: BP 151/84; PULSE 99; RESP 18; TEMP 37.4; O2SAT 92
[2023-08-11 07:30] LABS: Blood Urea Nitrogen 11 mg/dl (9-20); Carbon Dioxide 27 mmol/L (22.0-30.0); Chloride 106 mmol/L (98-107); Creatinine Clearance Estimated 74 mL/min (50-200); Estimated Glomerular Filt Rate 92 ml/min (>60); GFR (African American) 111 ML/MIN (>60); Glucose 121 mg/dl (74-100); Sodium 139 mmol/L (136-145)
[2023-08-11 08:00] VITALS: PULSE 90
[2023-08-11] MEDS: ASPIRIN EC 81MG TABLET 81 MG PO (08:07)
[2023-08-11] MEDS: CLOPIDOGREL 75MG TAB 75 MG PO (08:07)
--- NOTE | 2023-08-11 08:20 | P.PN_ITS ---
Subjective Subjective Date: 08/11/23 Time: 08:21 Principal diagnosis: CAD, Cardiomyopathy Interval history: 87-year-old white male sitting in bedside chair in no acute distress. No complaints overnight. Anxious to go home. Chronic productive cough with some mildly reddish tinge which again is chronic per patient and his . Creatinine this morning is 0.8 Exam Data for Last 24 hours Vital signs and Labs for Last 24 Hours: Temp Pulse Resp BP Pulse Ox O2 Del Method 99.4 F 99 H 18 151/84 H 92 L Room Air 08/11/23 07:24 08/11/23 07:24 08/11/23 07:24 08/11/23 07:24 08/11/23 07:24 08/11/23 07:24 Laboratory Results - last 24 hr 08/10/23 11:47: Activated Clotting Time > 400 H* 08/10/23 12:16: Activated Clotting Time 308 H* D 08/10/23 13:12: WBC 4.9, RBC 4.58 L, Hgb 14.3, Hct 45.2, MCV 98.6 H, MCH 31.3 H, MCHC 31.8, RDW 14.4, Plt Count 134 L, MPV 9.2, Neut % (Auto) 69.1, Lymph % (Auto) 19.9, [place] % (Auto) 6.8, Eos % (Auto) 3.7, Baso % (Auto) 0.5, Neut # (Auto) 3.4, Lymph # (Auto) 1.0, [place] # (Auto) 0.3, Eos # (Auto) 0.2, Baso # (Auto) 0.0, Sodium 141, Potassium 4.4, Chloride 106, Carbon Dioxide 30, Anion Gap 9.4, BUN 11, Creatinine 0.70, Estimated Creat Clear 73, Estimated GFR 107, Est GFR ( Amer) 129, Glucose 105 H, Calcium 9.0 08/11/23 06:59: WBC 6.9 D, RBC 4.71, Hgb 15.2, Hct 44.8, MCV 95.1 H, MCH 32.2 H , MCHC 33.8, RDW 14.3, Plt Count 140 L, MPV 9.0, Neut % (Auto) 76.2, Lymph % (Auto) 12.8, [place] % (Auto) 8.1, Eos % (Auto) 2.6, Baso % (Auto) 0.3, Neut # (Auto) 5.2, Lymph # (Auto) 0.9, [place] # (Auto) 0.6, Eos # (Auto) 0.2, Baso # (Auto) 0.0, Sodium 139, Potassium 4.0, Chloride 106, Carbon Dioxide 27, Anion Gap 10.0, BUN 11, Creatinine 0.80, Estimated Creat Clear 74, Estimated GFR 92, Est GFR ( Amer) 111, Glucose 121 H, Calcium 9.0 I & O for Last 24 hours: Intake & Output 08/08/23 08/09/23 08/10/23 08/11/23 11:59 11:59 11:59 11:59 Intake Total 1580 / 1580 Output Total 0 / 0 Balance 1580 / 1580 Weight 209 lb 216 lb 3.917 oz Constitutional Constitutional: no acute distress *Routine Respiratory Exam Respiratory: Present CTA bilaterally *Routine Cardiovascular Exam Cardiovascular: Present RRR Progress Note: A&P Assessment and plan (1) Ischemic cardiomyopathy: Status: Acute (2) Type 2 diabetes mellitus: Status: Acute (3) Hypertension: Status: Chronic (4) History of [place] (myocardial infarction): Status: Chronic (5) Coronary artery disease: Status: Chronic Assessment and Plan Assessment and Plan for All Diagnoses:: 1. Ischemic cardiomyopathy (history of [place] and stenting approximately 10 years ago) with EF of 20% by echocardiogram today -Continue Coreg and Entresto along with Maxide as directed. Patient previously intolerant to Jardiance -Reevaluate EF in 45 days with limited echo but will need to wait a total of 90 days for AICD implantation if needed. 2. Multivessel CAD -Status post JUDY to left main, ostial, proximal, mid and distal LAD and circumflex arteries with a total of 5 stents. Persistent nonflow limiting mild to moderate CAD of RCA remains 3. Dyslipidemia with LDL 120.9 on 08/04/2023 -Patient intolerant to statins -Consider Leqvio or Repatha as an outpatient 4. Hypertension, controlled 5. Diabetes mellitus type 2, per Dr. Adolfo Loving from a cardiac standpoint for discharge home. Follow-up in our office in 1 week. Home medication recommendations: Aspirin 81 mg daily Plavix 75 mg daily Coreg 6.25 mg twice daily Entresto 2 tablets twice daily Maxide 25 daily Protonix 40 mg daily
--- NOTE | 2023-08-11 08:36 | P.HPDS_ITS ---
General Admission date:: 08/10/23 Discharge date: 08/11/23 *Admission Date: 08/10/23 *Chief complaint: s/p heart cath *History of present illness: 87-year-old white male with known cardiomyopathy and EF of around 20% was admitted after cardiac catheterization today and multivessel stenting. Due to the amount of contrast use he was admitted for IV fluids and monitoring overnight. Patient was seen in the office by Dr. Pitts last week with discussion regarding a LifeVest, which patient declined. (above as per cardiology) [facility] Disclaimer: The information contained in this section may have been updated after the patient was seen, as this information can be updated by other users. Medical History (Updated 08/11/23 @ 09:15 by KINGS Coy) Congestive heart failure History of gastroesophageal reflux (GERD) History of heart attack History of laryngeal cancer Hypertension Kidney stone Type 2 diabetes mellitus Surgical History (Updated 08/11/23 @ 09:15 by KINGS Coy) H/O heart artery stent History of cholecystectomy History of throat surgery History of tonsillectomy History of tracheostomy Family History (Updated 08/11/23 @ 09:15 by KINGS Coy) Diabetes Coronary artery disease Heart attack Family history of diabetes mellitus type II Mother Family history of myocardial infarction Cancer Stroke Social History (Updated 08/10/23 @ 12:56 by Ольга Juárez RN) Smoking Status: Former smoker tobacco type: cigarettes packs per day: 1 second hand exposure: Yes alcohol intake: never substance use type: denies use current occupational status: retired Travel in the last 8 weeks: None household members: spouse housing: house current occupational exposures/hazards: No caffeine: Yes Review of Systems Constitutional Constitutional: Denies body ache(s), Denies fever(s) and Denies headache(s) Eyes Eyes: Denies blurry vision and Denies diplopia ENT Ears, Nose, Mouth, and Throat: Denies dizziness, Denies headache(s), Denies nasal congestion and Denies sore throat *Cardiovascular Cardiovascular: Denies chest pain and Denies dyspnea *Respiratory Respiratory: Denies cough and Denies dyspnea *Gastrointestinal Gastrointestinal: Denies abdominal pain, Denies loose stools, Denies nausea and Denies vomiting *Genitourinary Genitourinary: Denies difficulty urinating and Denies dysuria *Musculoskeletal Musculoskeletal: Denies muscle weakness and Denies myalgias *Neurologic Neurologic: Denies dizziness and Denies headache(s) Exam Data for Last 24 hours Vital signs and Labs for Last 24 Hours: Temp Pulse Resp BP Pulse Ox O2 Del Method 99.4 F 99 H 18 151/84 H 92 L Room Air 08/11/23 07:24 08/11/23 07:24 08/11/23 07:24 08/11/23 07:24 08/11/23 07:24 08/11/23 07:24 Laboratory Results - last 24 hr 08/10/23 11:47: Activated Clotting Time > 400 H* 08/10/23 12:16: Activated Clotting Time 308 H* D 08/10/23 13:12: WBC 4.9, RBC 4.58 L, Hgb 14.3, Hct 45.2, MCV 98.6 H, MCH 31.3 H, MCHC 31.8, RDW 14.4, Plt Count 134 L, MPV 9.2, Neut % (Auto) 69.1, Lymph % (Auto) 19.9, [place] % (Auto) 6.8, Eos % (Auto) 3.7, Baso % (Auto) 0.5, Neut # (Auto) 3.4, Lymph # (Auto) 1.0, [place] # (Auto) 0.3, Eos # (Auto) 0.2, Baso # (Auto) 0.0, Sodium 141, Potassium 4.4, Chloride 106, Carbon Dioxide 30, Anion Gap 9.4, BUN 11, Creatinine 0.70, Estimated Creat Clear 73, Estimated GFR 107, Est GFR ( Amer) 129, Glucose 105 H, Calcium 9.0 08/11/23 06:59: WBC 6.9 D, RBC 4.71, Hgb 15.2, Hct 44.8, MCV 95.1 H, MCH 32.2 H , MCHC 33.8, RDW 14.3, Plt Count 140 L, MPV 9.0, Neut % (Auto) 76.2, Lymph % (Auto) 12.8, [place] % (Auto) 8.1, Eos % (Auto) 2.6, Baso % (Auto) 0.3, Neut # (Auto) 5.2, Lymph # (Auto) 0.9, [place] # (Auto) 0.6, Eos # (Auto) 0.2, Baso # (Auto) 0.0, Sodium 139, Potassium 4.0, Chloride 106, Carbon Dioxide 27, Anion Gap 10.0, BUN 11, Creatinine 0.80, Estimated Creat Clear 74, Estimated GFR 92, Est GFR ( Amer) 111, Glucose 121 H, Calcium 9.0 I & O for Last 24 hours: Intake & Output 08/08/23 08/09/23 08/10/23 08/11/23 11:59 11:59 11:59 11:59 Intake Total 1580 / 1580 Output Total 0 / 0 Balance 1580 / 1580 Weight 209 lb 216 lb 3.917 oz Constitutional Constitutional: no acute distress *Routine HEENT Exam Head: Present normocephalic and atraumatic Eye: Present EOMI and PERRL ENT: Present mucous membranes moist *Routine Neck Exam Neck: Present supple and full ROM *Routine Respiratory Exam Respiratory: Present CTA bilaterally *Routine Cardiovascular Exam Cardiovascular: Present RRR *Routine Abdominal Exam Abdominal: Present soft and normoactive bowel sounds; Absent tenderness *Routine Rectal Exam Rectal:: deferred *Routine Genitalia Exam Genitalia:: deferred *Routine Extremities Exam Extremities: Absent cyanosis, clubbing or edema *Routine Skin Exam Skin: Present intact; Absent erythema *Routine Neurological Exam Neurological: Present alert and oriented X3 Meds Home Medications and Allergies Home Medications Medication Instructions Recorded Confirmed Type pantoprazole 40 mg tablet,delayed 40 mg PO DAILY 03/30/20 08/10/23 History release aspirin 81 mg tablet,delayed 81 mg PO DAILY 03/31/20 08/10/23 History release sacubitril 49 mg-valsartan 51 mg 1 tab PO BID 03/08/23 08/10/23 History tablet (Entresto) triamterene 37.5 1 tab PO DAILY PRN Fluid 03/08/23 08/10/23 History mg-hydrochlorothiazide 25 mg tablet carvedilol 6.25 mg tablet (Coreg) 6.25 mg PO BID 90 days #180 tabs 03/29/23 08/10/23 Rx clopidogrel 75 mg tablet 75 mg PO DAILY #30 tabs 08/11/23 Rx New Prescriptions to Start Prescriptions: clopidogrel Marshall,Jaren Allergies Allergy/AdvReac Type Severity Reaction Status Date / Time Jilfmov-DOL-ArE Reductase AdvReac Mild Verified 08/04/23 10:12 Inhibitor jardiance AdvReac Mild mild Uncoded 08/04/23 10:12 Hospital Course Hospital Course Hospital Course: Cardiology wanted to continue Coreg and Entresto along with Maxide. They wanted to reevaluate his EF in 90 days to see if he needs AICD implantation. They wanted to try to initiate Repatha as an outpatient as the patient is intolerant to statins. His creatinine remained stable by 08/11/23 and he was able to be discharged home with normal home medications with the addition of Plavix 75 mg daily. Results Data Completed and Pending Labs on day of discharge: Labs from last 24 hours 08/11/23 08/10/23 08/10/23 06:59 13:12 12:16 WBC 6.9 D 4.9 RBC 4.71 4.58 L Hgb 15.2 14.3 Hct 44.8 45.2 MCV 95.1 H 98.6 H MCH 32.2 H 31.3 H MCHC 33.8 31.8 RDW 14.3 14.4 Plt Count 140 L 134 L MPV 9.0 9.2 Neut % (Auto) 76.2 69.1 Lymph % (Auto) 12.8 19.9 [place] % (Auto) 8.1 6.8 Eos % (Auto) 2.6 3.7 Baso % (Auto) 0.3 0.5 Neut # (Auto) 5.2 3.4 Lymph # (Auto) 0.9 1.0 [place] # (Auto) 0.6 0.3 Eos # (Auto) 0.2 0.2 Baso # (Auto) 0.0 0.0 Activated Clotting Time 308 H* D Sodium 139 141 Potassium 4.0 4.4 Chloride 106 106 Carbon Dioxide 27 30 Anion Gap 10.0 9.4 BUN 11 11 Creatinine 0.80 0.70 Estimated Creat Clear 74 73 Estimated GFR 92 107 Est GFR ( Amer) 111 129 Glucose 121 H 105 H Calcium 9.0 9.0 08/10/23 11:47 WBC RBC Hgb Hct MCV MCH MCHC RDW Plt Count MPV Neut % (Auto) Lymph % (Auto) [place] % (Auto) Eos % (Auto) Baso % (Auto) Neut # (Auto) Lymph # (Auto) [place] # (Auto) Eos # (Auto) Baso # (Auto) Activated Clotting Time > 400 H* Sodium Potassium Chloride Carbon Dioxide Anion Gap BUN Creatinine Estimated Creat Clear Estimated GFR Est GFR ( Amer) Glucose Calcium DS: Diagnosis Discharge Diagnosis (1) Ischemic cardiomyopathy: Status: Acute Code(s): I25.5 - Ischemic cardiomyopathy (2) Type 2 diabetes mellitus: Status: Acute Code(s): E11.9 - Type 2 diabetes mellitus without complications Qualifiers: Diabetes mellitus complication status: with other specified complication Diabetes mellitus chcf insulin use: without assistant terminal manager use Qualified Code(s): E11.69 - Type 2 diabetes mellitus with other specified complication (3) Hypertension: Status: Chronic Code(s): I10 - Essential (primary) hypertension Qualifiers: Hypertension type: unspecified Qualified Code(s): I10 - Essential (primary) hypertension (4) History of VT (myocardial infarction): Status: Chronic Code(s): I25.2 - Old myocardial infarction (5) Coronary artery disease: Status: Chronic Code(s): I25.10 - Atherosclerotic heart disease of [place] coronary artery without angina pectoris Qualifiers: Associated angina: without angina Coronary Disease-Associated Artery/Lesion type: [place] artery [place] vs. transplanted heart: [place] heart Qualified Code(s): I25.10 - Atherosclerotic heart disease of [place] coronary artery without angina pectoris Discharge Plan Disposition Patient Disposition: Home, Self-Care Condition: Fair Follow up Plan Follow up with: Jaren Mata MD [Primary Care Provider] - 08/18/23 2:00 pm Keanu Pitts MD [Staff Physician] - 08/18/23 10:45 am Prescriptions/Medication Reconciliation: New clopidogrel 75 mg Tablet 75 mg PO DAILY Qty: 30 5RF Continued Entresto 49-51 mg tablet 1 tab PO BID triamterene-hydrochlorothiazid 37.5-25 mg tablet 1 tab PO DAILY PRN (Reason: Fluid) carvedilol [Coreg] 6.25 mg tablet 6.25 mg PO BID 90 Days Qty: 180 3RF Rx Instructions: must administer with a meal/food pantoprazole 40 MG tablet,delayed release (DR/EC) 40 mg PO DAILY aspirin 81 MG tablet,delayed release (DR/EC) 81 mg PO DAILY Problem Reconciliation Problems Reviewed?: Yes Patient Discharge Instructions ACTIVITY: Limited activity DIET: continue same diet Patient Instructions: DI for Cardiac Catheterization, DI for Surgical Site Infection, DI for Coronary Artery Disease, Knowing Your Ejection Fraction Providers Primary Care Provider: Jaren Mata Admit Provider: Jaren Mata Attending Provider: Jaren Mata
[2023-08-11] MEDS: HCTZ 25MG/TRIAMTERENE 37.5MG TABLET 1 EACH PO (08:39)
[2023-08-11] MEDS: SACUBITRIL/VALSARTAN 24-26MG TABLET 2 EACH PO (08:39)
[2023-08-11] MEDS: CARVEDILOL 6.25MG TABLET 6.25 MG PO (08:39)
--- NOTE | 2023-08-12 13:17 | CARE MANAGER ---
Called and spoke with patient's regarding recent discharge. She states he is doing well, no concerns voiced at time of call. Has started new medication and is aware of f/u appts.
== END 2023-08-11 09:40 | disposition home or self-care (01) ==
LOC: 2ND 11:32
PROVIDERS: Internal Medicine; Admitting Provider Family Medicine; PCP Family Medicine; Visit Provider Family Medicine
DX: E11.9 Type 2 diabetes mellitus without complications (principal); I10 Essential (primary) hypertension; I25.118 Atherosclerotic heart disease of native coronary artery with other forms of angina pectoris; I25.2 Old myocardial infarction; I25.5 Ischemic cardiomyopathy; R06.00 Dyspnea, unspecified; R42 Dizziness and giddiness; Z79.899 Other long term (current) drug therapy; E78.5 Hyperlipidemia, unspecified
CPT/HCPCS: 36415; 80048; 85025; 85347; 92928; 92929; 93306; 99152; 99153; C1725; C1769; C1876; C9600; C9601; G0378; J1644; Q9967

== ENCOUNTER 2023-11-18 13:46 | Outpatient (CLI) | payer MEDICARE, OTHER, SELFPAY ==
[2023-11-18 15:40] LABS: Chloride 104 mmol/L (98-107); Sodium 138 mmol/L (136-145)
[2023-11-18 15:43] LABS: Blood Urea Nitrogen 24 mg/dl (9-20); Calcium 9.9 mg/dl (8.4-10.2); Carbon Dioxide 28 mmol/L (22.0-30.0); Estimated Glomerular Filt Rate 63 ml/min (>60); GFR (African American) 77 ML/MIN (>60); Glucose 107 mg/dl (74-100)
== END 2023-11-18 23:59 ==
LOC: LAB 13:47
PROVIDERS: PCP Family Medicine; Visit Provider Internal Medicine
DX: E11.69 Type 2 diabetes mellitus with other specified complication (principal); I25.10 Atherosclerotic heart disease of native coronary artery without angina pectoris; I25.2 Old myocardial infarction; I10 Essential (primary) hypertension; I25.5 Ischemic cardiomyopathy
CPT/HCPCS: 36415; 80048

== ENCOUNTER 2023-11-29 14:45 | Outpatient (CLI) | payer MEDICARE, OTHER, SELFPAY ==
--- NOTE | 2023-11-29 14:45 | CA_ITS ---
APPROVED REPORT EXAM: Comprehensive 2D, Doppler, and color-flow Echocardiogram Screener Operator: Debbie Zavala CRT Ht: 5 ft 8 in Wt: 208lbs BSA: 2.08 BP: 140/81 mmHg Indications: ef check Echo 20% 08/10/23 M-Mode Dimensions RVDd 1.38 cm (0.9-2.6) LA Diam 4.41 cm (1.9-4.0) LVDd 6.11 cm (3.5-5.7) LVDs 4.90 cm (3.5-5.7) IVSd 1.24 cm (0.6-1.1) PWd 0.67 cm (0.6-1.1) EF (Teich) 39.90% FS 19.80% EDV (Teich) 187.60 mL ESV (Teich) 112.80 mL Other Information Study Quality: Fair Conclusion This is a limited TTE to evaluate for LVEF. Limited windows were obtained. The left ventricle is severely dilated. There is severe global hypokinesis present. The septum is asynchronous. The inferior and inferoseptal LV avina, as well as the LV apex, are akinetic. LVEF is 25%. Compared to prior study from 08/2023, there is slight improvement in LVEF (notably at the bases), but overall the LV systolic function remains severely reduced. Electronically signed by : Niurka Pitts MD 12/02/2023 14:36:45
== END 2023-11-29 23:59 | disposition home or self-care (01) ==
LOC: RT 14:45
PROVIDERS: PCP Family Medicine; Visit Provider Internal Medicine
DX: I25.10 Atherosclerotic heart disease of native coronary artery without angina pectoris (principal); I11.9 Hypertensive heart disease without heart failure; I25.2 Old myocardial infarction; I25.5 Ischemic cardiomyopathy; E11.69 Type 2 diabetes mellitus with other specified complication; Z87.891 Personal history of nicotine dependence
CPT/HCPCS: 93308

== ENCOUNTER 2024-10-11 15:03 | Outpatient (CLI) | payer MEDICARE, OTHER, SELFPAY | END 2024-10-11 23:59 | disposition home or self-care (01) | LOC: RT 15:04 | PROVIDERS: PCP Family Medicine; Visit Provider Internal Medicine | DX: R42 Dizziness and giddiness (principal) | CPT/HCPCS: 93270 ==

== ENCOUNTER 2024-10-19 10:47 | Outpatient (CLI) | payer MEDICARE, OTHER, SELFPAY ==
[2024-10-19] MEDS: REGADENOSON 0.4MG/5ML SYRINGE 0.4 MG IV (14:10)
[2024-10-19] MEDS: SODIUM CHLORIDE 0.9% 10ML SYR (RAD ONLY) 10 ML IV ×2 (14:10→14:11)
[2024-10-19] MEDS: ISOTOPE MYOVIEW (PER STUDY) 1 DOSE IV (14:10)
[2024-10-19] MEDS: DEFINITY US ECHO CONTRAST 2ML INJ 2 MG IV (15:51)
== END 2024-10-19 23:59 | disposition home or self-care (01) ==
LOC: RAD 10:48
PROVIDERS: PCP Family Medicine; Visit Provider Internal Medicine
DX: I25.10 Atherosclerotic heart disease of native coronary artery without angina pectoris (principal); I25.5 Ischemic cardiomyopathy; I10 Essential (primary) hypertension; I25.2 Old myocardial infarction; E11.69 Type 2 diabetes mellitus with other specified complication
CPT/HCPCS: 78452; 93017; 93018; 93306; A9502; J2785; Q9957

== ENCOUNTER 2024-11-13 14:38 | Outpatient (CLI) | payer MEDICARE, OTHER, SELFPAY ==
[2024-11-13 15:40] LABS: Basophils % 0.3 % (0.1-2.0); Eosinophils # 0.1 K/mm3 (0.0-0.4); Eosinophils % 0.9 % (0.1-12.0); Hematocrit 34.6 % (42.0-52.0); Hemoglobin 10.7 g/dL (14.1-18.0); Lymphocytes # 0.8 K/mm3 (0.7-4.5); Lymphocytes % 12.9 % (10-50); Mean Corpuscular HGB Conc 30.9 g/dL (31.8-35.4); Mean Corpuscular Hemoglobin 28.5 pg (27.0-31.2); Mean Corpuscular Volume 92.3 fl (80-94); Mean Platelet Volume 10.5 fl (7.4-10.4); Monocytes # 0.5 K/mm3 (0.1-1.0); Monocytes % 9.3 % (1.7-9.3); Neutrophils # 4.4 K/mm3 (1.8-7.8); Neutrophils % 76.1 % (37.0-80.0); Platelet Count 179 K/mm3 (142-424); Red Blood Count 3.75 M/mm3 (4.60-6.20); Red Cell Distribution Width 14.9 % (11.5-17.5); White Blood Count 5.8 K/mm3 (4.8-10.8)
[2024-11-13 16:45] LABS: Free T4 (Free Thyroxine) 1.08 ng/dl (0.78-2.19)
[2024-11-13 17:02] LABS: Alanine Aminotransferase 17 U/L (12-78); Albumin Level 3.6 g/dl (3.5-5.0); Alkaline Phosphatase 64 U/L (38-126); Anion Gap 12.4 mEq/L (5-15); Aspartate Amino Transferase 24 U/L (17-59); Bilirubin,Direct 0.3 mg/dl (0.0-0.4); Bilirubin,Indirect 0.3 mg/dL (0.0-0.9); Bilirubin,Total 0.6 mg/dl (0.2-1.3); Bilirubin,Unconjugated 0.3 mg/dL (0.0-1.1); Blood Urea Nitrogen 17 mg/dl (9-20); Calcium 9.3 mg/dl (8.4-10.2); Carbon Dioxide 30 mmol/L (22.0-30.0); Chloride 102 mmol/L (98-107); Chol/HDL Ratio 5.3 (1-3.5); Cholesterol 186 mg/dl (140-200); Estimated Glomerular Filt Rate 63 ml/min (>60); GFR (African American) 77 ML/MIN (>60); Glucose 120 mg/dl (74-100); HDL Cholesterol 35 mg/dl (40-60); Magnesium 1.8 mg/dl (1.6-2.3); Potassium 4.4 mmoL/L (3.5-5.1); Sodium 140 mmol/L (136-145); Total Protein,Serum 6.4 g/dl (6.3-8.2); Triglycerides 129 mg/dl (30-150); VLDL Cholesterol 26 mg/dL (0-40)
[2024-11-13 17:14] LABS: Direct LDL Cholesterol 111.24 mg/dL (100-129)
[2024-11-13 17:33] LABS: Thyroid Stimulating Hormone 2.63 uIU/mL (0.465-4.68)
== END 2024-11-13 23:59 | disposition home or self-care (01) ==
LOC: LAB 14:39
PROVIDERS: PCP Family Medicine; Visit Provider Internal Medicine
DX: I48.91 Unspecified atrial fibrillation (principal); E11.69 Type 2 diabetes mellitus with other specified complication; I25.10 Atherosclerotic heart disease of native coronary artery without angina pectoris; I25.2 Old myocardial infarction; I10 Essential (primary) hypertension; I25.5 Ischemic cardiomyopathy; R74.8 Abnormal levels of other serum enzymes
CPT/HCPCS: 36415; 80048; 80061; 80076; 83735; 84439; 84443; 85025

== ENCOUNTER 2024-11-14 08:48 | Outpatient (CLI) | payer MEDICARE, OTHER, SELFPAY ==
[2024-11-14 16:42] LABS: Occult Blood,Stool Positive (Negative)
== END 2024-11-14 23:59 | disposition home or self-care (01) ==
LOC: LAB 08:49
PROVIDERS: PCP Family Medicine; Visit Provider Internal Medicine
DX: K92.1 Melena (principal); I48.91 Unspecified atrial fibrillation
CPT/HCPCS: 82272; G0328

== ENCOUNTER 2024-12-13 15:00 | Outpatient (CLI) | payer MEDICARE, OTHER, SELFPAY ==
[2024-12-13 15:42] LABS: Basophils % 0.4 % (0.1-2.0); Eosinophils # 0.1 Kmm3 (0.0-0.4); Eosinophils % 2.4 % (0.1-12.0); Hematocrit 39.9 % (42.0-52.0); Hemoglobin 12.5 g/dL (14.1-18.0); Immature Granulocytes # 0.02 10^3uL; Immature Granulocytes % 0.4 %; Lymphocytes # 0.8 K/mm3 (0.7-4.5); Lymphocytes % 16.5 % (10-50); Mean Corpuscular HGB Conc 31.3 g/dL (31.8-35.4); Mean Corpuscular Hemoglobin 29.9 pg (27.0-31.2); Mean Corpuscular Volume 95.5 fl (80-94); Mean Platelet Volume 10.3 fl (7.4-10.4); Monocytes # 0.5 K/mm3 (0.1-1.0); Monocytes % 11.6 % (1.7-9.3); Neutrophils # 3.2 K/mm3 (1.8-7.8); Neutrophils % 68.7 % (37.0-80.0); Nucleated Red Blood Cells # 0 10^3/uL; Nucleated Red Blood Cells % 0 %; Platelet Count 156 K/mm3 (142-424); Red Blood Count 4.18 M/mm3 (4.60-6.20); Red Cell Distribution Width 17.9 % (11.5-17.5); Red Cell Distribution Width-SD 62.9 fL; Reticulocyte % (Auto) 1.8 % (0.9-3.2); White Blood Count 4.7 K/mm3 (4.8-10.8)
[2024-12-13 16:10] LABS: Anion Gap 6.4 mEq/L (5-15); Blood Urea Nitrogen 17 mg/dl (9-20); Calcium 9.6 mg/dl (8.4-10.2); Carbon Dioxide 30 mmol/L (22.0-30.0); Chloride 109 mmol/L (98-107); Estimated Glomerular Filt Rate 71 ml/min (>60); GFR (African American) 86 ML/MIN (>60); Glucose 112 mg/dl (74-100); Potassium 4.4 mmoL/L (3.5-5.1); Sodium 141 mmol/L (136-145)
[2024-12-13 16:20] LABS: NT Pro Brain Natriuretic Pep. 730 pg/mL (0-450)
[2024-12-13 18:35] LABS: Total Iron Binding Capacity 298 ug/dL (261-462)
[2024-12-13 23:12] LABS: Iron 69 ug/dL (49-181)
== END 2024-12-13 23:59 | disposition home or self-care (01) ==
LOC: LAB 15:01
PROVIDERS: PCP Family Medicine; Visit Provider Internal Medicine
DX: I11.0 Hypertensive heart disease with heart failure (principal); I25.10 Atherosclerotic heart disease of native coronary artery without angina pectoris; I25.5 Ischemic cardiomyopathy; I25.2 Old myocardial infarction; I48.0 Paroxysmal atrial fibrillation; D50.8 Other iron deficiency anemias; E11.69 Type 2 diabetes mellitus with other specified complication; R74.8 Abnormal levels of other serum enzymes; K92.1 Melena; K21.9 Gastro-esophageal reflux disease without esophagitis
CPT/HCPCS: 80048; 83540; 83550; 83880; 85025; 85044

== ENCOUNTER 2025-01-18 15:51 | Outpatient (CLI) | payer MEDICARE, OTHER, SELFPAY ==
[2025-01-18 16:27] LABS: Basophils % 0.4 % (0.1-2.0); Eosinophils # 0.1 Kmm3 (0.0-0.4); Eosinophils % 2.5 % (0.1-12.0); Hematocrit 40.3 % (42.0-52.0); Hemoglobin 13.1 g/dL (14.1-18.0); Immature Granulocytes # 0.02 10^3uL; Immature Granulocytes % 0.4 %; Lymphocytes # 0.8 K/mm3 (0.7-4.5); Lymphocytes % 16.1 % (10-50); Mean Corpuscular HGB Conc 32.5 g/dL (31.8-35.4); Mean Corpuscular Hemoglobin 30.7 pg (27.0-31.2); Mean Corpuscular Volume 94.4 fl (80-94); Mean Platelet Volume 9.8 fl (7.4-10.4); Monocytes # 0.5 K/mm3 (0.1-1.0); Monocytes % 11.2 % (1.7-9.3); Neutrophils # 3.4 K/mm3 (1.8-7.8); Neutrophils % 69.4 % (37.0-80.0); Nucleated Red Blood Cells # 0 10^3/uL; Nucleated Red Blood Cells % 0 %; Platelet Count 136 K/mm3 (142-424); Red Blood Count 4.27 M/mm3 (4.60-6.20); Red Cell Distribution Width 15.9 % (11.5-17.5); Red Cell Distribution Width-SD 55.2 fL; White Blood Count 4.8 K/mm3 (4.8-10.8)
[2025-01-18 17:29] LABS: Chloride 107 mmol/L (98-107); Potassium 4.1 mmoL/L (3.5-5.1); Sodium 141 mmol/L (136-145)
[2025-01-18 17:31] LABS: Blood Urea Nitrogen 13 mg/dl (9-20); Estimated Glomerular Filt Rate 71 ml/min (>60); GFR (African American) 85 ML/MIN (>60); Iron 60 ug/dL (49-181)
[2025-01-18 17:32] LABS: Anion Gap 8.1 mEq/L (5-15); Calcium 10.6 mg/dl (8.4-10.2); Carbon Dioxide 30 mmol/L (22.0-30.0); Glucose 133 mg/dl (74-100)
[2025-01-18 17:46] LABS: Total Iron Binding Capacity 257 ug/dL (261-462)
[2025-01-18 18:10] LABS: Ferritin 49.5 ng/ml (17.9-464)
== END 2025-01-18 23:59 | disposition home or self-care (01) ==
LOC: LAB 15:52
PROVIDERS: PCP Family Medicine; Visit Provider Internal Medicine
DX: D50.8 Other iron deficiency anemias (principal); I48.0 Paroxysmal atrial fibrillation; R74.8 Abnormal levels of other serum enzymes; I25.10 Atherosclerotic heart disease of native coronary artery without angina pectoris; I10 Essential (primary) hypertension
CPT/HCPCS: 36415; 80048; 82728; 82746; 83540; 83550; 85025

== ENCOUNTER 2025-05-09 15:53 | Outpatient (CLI) | payer MEDICARE, OTHER, SELFPAY ==
--- NOTE | 2025-05-09 15:57 | XR_ITS ---
FINAL REPORT CLINICAL HISTORY: RT SIDED LOW BACK PAIN W/O SCIATICA FINDINGS: ABDOMEN SINGLE VIEW There is a nonspecific, nonobstructive bowel gas pattern. No abnormal dilatation is identified. There is a moderate amount of retained stool throughout the colon. There is a density projecting in the lower pole of the left kidney measuring 1.3 cm, may represent a stone. IMPRESSION: Possible left renal stone. CT could better evaluate. Reviewed, Interpreted and Dictated by Sly Olguin MD Transcribed by Barbara Manning Authenticated and [facility]
== END 2025-05-09 23:59 | disposition home or self-care (01) ==
LOC: RAD 15:54
PROVIDERS: PCP Family Medicine; Visit Provider Family Medicine
DX: R93.422 Abnormal radiologic findings on diagnostic imaging of left kidney (principal); M54.50 Low back pain, unspecified
CPT/HCPCS: 74018